=== PATIENT | male | born 1955 | race Caucasian/White ===

== ENCOUNTER 2021-12-14 10:31 | Observation (INO) ==
--- NOTE | 2021-11-29 12:40 | PAT Medication Instructions ---
Medication Instructions Date of Service November 29, 2021 Home Medications acetaminophen 500 mg tablet 500 mg PO Q6H PRN albuterol sulfate 90 mcg/actuation aerosol inhaler 2 puff INHALATION 6XD PRN aspirin 81 mg tablet,delayed release 81 mg PO QAM atorvastatin 10 mg tablet 10 mg PO QAM bimatoprost 0.01 % eye drops (Lumigan) 1 drp OPHTHALMIC (EYE) PM brimonidine 0.2 %-timolol 0.5 % eye drops (Combigan) 1 drp OPHTHALMIC (EYE) BID celecoxib 200 mg capsule (Celebrex) 200 mg PO QAM dorzolamide (PF) 2 % (PF) eye drops 1 drp OPHTHALMIC (EYE) BID fluticasone furoate 100 mcg-vilanterol 25 mcg/dose inhalation powder (Breo Ellipta) 1 inh INHALATION QAM metoprolol succinate 100 mg tablet,extended release 24 hr (Toprol XL) 100 mg PO QAM omeprazole 40 mg capsule,delayed release 40 mg PO QAM oxybutynin chloride 15 mg tablet,extended release 24 hr 15 mg PO QAM ASK your surgeon for instructions celecoxib 200 mg capsule (Celebrex) 200 mg PO QAM ASK your prescriber and surgeon aspirin 81 mg tablet,delayed release 81 mg PO QAM DO NOT take the morning of surgery oxybutynin chloride 15 mg tablet,extended release 24 hr 15 mg PO QAM Take morning of surgery With a small sip of water, OTHERWISE NOTHING TO EAT OR DRINK AFTER MIDNIGHT: acetaminophen 500 mg tablet 500 mg PO Q6H PRN (okay to take up to 4 hours prior to surgery if needed) albuterol sulfate 90 mcg/actuation aerosol inhaler 2 puff INHALATION 6XD PRN (use if needed; please bring rescue inhaler with you to hospital day of surgery if possible) atorvastatin 10 mg tablet 10 mg PO QAM brimonidine 0.2 %-timolol 0.5 % eye drops (Combigan) 1 drp OPHTHALMIC (EYE) BID dorzolamide (PF) 2 % (PF) eye drops 1 drp OPHTHALMIC (EYE) BID fluticasone furoate 100 mcg-vilanterol 25 mcg/dose inhalation powder (Breo Ellipta) 1 inh INHALATION QAM metoprolol succinate 100 mg tablet,extended release 24 hr (Toprol XL) 100 mg PO QAM omeprazole 40 mg capsule,delayed release 40 mg PO QAM Take evening before surgery acetaminophen 500 mg tablet 500 mg PO Q6H PRN (if needed) albuterol sulfate 90 mcg/actuation aerosol inhaler 2 puff INHALATION 6XD PRN (if needed) bimatoprost 0.01 % eye drops (Lumigan) 1 drp OPHTHALMIC (EYE) PM brimonidine 0.2 %-timolol 0.5 % eye drops (Combigan) 1 drp OPHTHALMIC (EYE) BID dorzolamide (PF) 2 % (PF) eye drops 1 drp OPHTHALMIC (EYE) BID Other Notes If you have any questions please call us at [phone] or [phone] or [phone] or [phone]
--- NOTE | 2021-12-01 09:59 | Anesthesiology Consultation ---
Date of Service December 01, 2021 Assessment & Plan (1) Encounter for pre-operative examination: - will obtain: most recent cardiology note and loop recorder interrogation. most recent PCP office note. - PONV: Pt states has received scop patch in past, has glaucoma. To anesthesiologist discretion if benefit outweighs risk. - COVID screening: Per assessment on 12/01/2021: Travel screen negative, no known COVID-19 positive contacts or current COVID-19 related symptoms in past 2 weeks. Patient vaccinated. Surgeon arranging preop COVID testing, scheduled 12/12/2021. Awaiting results. Chart Review Chart Review: Pending: Refer to Additional Notes / Consult section and Patient seen in Pre Admission Testing History Surgery Operation Date: 12/14/21 11:15 Proposed Procedures p Left Reversed Total Shoulder Arthroplasty - Pablo Delgado MD Height/Weight Height: 5 ft 9 in Weight: 90.7 kg Allergies Allergy/AdvReac Type Severity Reaction Status Date / Time oxycodone [From OxyContin] AdvReac Unknown HIVES, Verified 11/29/21 08:31 NAUSEA Medications Home Medications Medication Instructions Recorded Confirmed Last Taken acetaminophen 500 mg tablet 500 mg PO Q6H PRN 11/29/21 11/29/21 Unknown albuterol sulfate 90 mcg/actuation 2 puff INHALATION 6XD PRN 11/29/21 11/29/21 Unknown aerosol inhaler aspirin 81 mg tablet,delayed 81 mg PO QAM 11/29/21 11/29/21 Unknown release atorvastatin 10 mg tablet 10 mg PO QAM 11/29/21 11/29/21 Unknown bimatoprost 0.01 % eye drops 1 drp OPHTHALMIC (EYE) PM 11/29/21 11/29/21 Unknown (Lumigan) brimonidine 0.2 %-timolol 0.5 % 1 drp OPHTHALMIC (EYE) BID 11/29/21 11/29/21 Unknown eye drops (Combigan) celecoxib 200 mg capsule (Celebrex) 200 mg PO QAM 11/29/21 11/29/21 Unknown dorzolamide (PF) 2 % (PF) eye drops 1 drp OPHTHALMIC (EYE) BID 11/29/21 11/29/21 Unknown fluticasone furoate 100 1 inh INHALATION QAM 11/29/21 11/29/21 Unknown mcg-vilanterol 25 mcg/dose inhalation powder (Breo Ellipta) metoprolol succinate 100 mg 100 mg PO QAM 11/29/21 11/29/21 Unknown tablet,extended release 24 hr (Toprol XL) omeprazole 40 mg capsule,delayed 40 mg PO QAM 11/29/21 11/29/21 Unknown release oxybutynin chloride 15 mg 15 mg PO QAM 11/29/21 11/29/21 Unknown tablet,extended release 24 hr Past Medical History Medical History (Updated 12/01/21 @ 11:15 by Grace Lieberman PA-C) Asthma last rescue inhaler use > 6 mos ago Atrial fibrillation Follows with Dr. Hook ([place]), states was recently taken off anticoagulation by medical csr given absence of significant arrhythmias on recent loop recorder interrogation Cancer Prostate DJD (degenerative joint disease) GERD (gastroesophageal reflux disease) controlled, stable per pt Glaucoma Hyperlipidemia Hypertension controlled, stable per pt Sleep apnea CPAP-compliant Patient denies h/o stroke, seizures, heart attack, heart failure, DM, blood clots or blood transfusions. Exercise / Class Metabolic Activity II 4-5 Yardwork/Stairs/Walk up hill (denies CP or SOB with 1 FOS) Past Family History Family History Grandmother (Paternal) Family history of diabetes mellitus Past Surgical History Surgical History History of appendectomy History of cardiac cath NO [facility]15 YRS AGO History of colonoscopy 2019 History of esophagogastroduodenoscopy (EGD) History of hand surgery LEFT FINGER History of knee surgery RIGHT ACL History of loop recorder IN PLACE History of prostatectomy AND RADIATION 2019 History of shoulder surgery LEFT X 2 History of total knee replacement LEFT Nausea and vomiting after administration of anesthetic agent Past Anesthesia History No Hx of Anesthesia Complications and No Family Hx of Anesthesia Complications History of PONV No Hx of Motion Sickness and History of PONV Social History Smoking Status: Never smoker Do You Dip or Chew Tobacco: No Hx Alcohol Use: No Hx Substance Use: No Review of Systems Patient denies chest pain, shortness of breath, dyspnea on exertion, fever, chills, cough, wheezing, or palpitations. Physical Exam Vital Signs Vitals BP 156/90 P 50 TEMP 97.6 SP02 98% on RA RESP 17 Physical Full cervical extension range of motion without pain Full TMJ range of motion TMD 3.5 finger breaths Mallampati Score 3 Dentition: intact, several caps front upper teeth; denies missing, chipped or loose teeth teeth, implants or bridges Lungs: normal respiratory effort. Clear throughout to auscultation, no adventitious breath sounds Cardiac: regular rate and rhythm, no murmurs noted Carotid arteries: negative bruit bilat Lab Results Anesthesia Preop Results Results Anesthesia Widget: WBC 4.02 K/uL (4.8-10.8) L 12/01/21 Hgb 14.4 g/dL (14.0-18.0) 12/01/21 Hct 42.1 % (42-52) 12/01/21 Plt 157 K/uL (130-400) 12/01/21 Na 141 mmol/L (136-145) 12/01/21 K 5.0 mmol/L (3.5-5.1) 12/01/21 Cl 106 mmol/L (98-107) 12/01/21 CO2 31 mmol/L (21-32) 12/01/21 BUN 23 mg/dl (6-23) 12/01/21 Creat 1.14 mg/dl (0.6-1.4) 12/01/21 Glucose Level 95 mg/dl (70-99(Fasting)) 12/01/21 PT 11.7 Seconds (9.0-12.0) 12/01/21 PTT 24.1 Seconds (21.0-31.0) 12/01/21 INR 1.1 (0.9-1.1) 12/01/21 HA1c 5.4 % (4.5-5.6) 12/01/21 Urine Color Yellow 12/01/21 Urine Appearance Clear (Clear) 12/01/21 Urine pH 6.0 (4.5-7.5) 12/01/21 Urine Specific Elizabeth 1.013 (1.000-1.030) 12/01/21 Urine Protein Negative (Negative) 12/01/21 Urine Glucose (UA) Negative (Negative) 12/01/21 Urine Ketones Negative (Negative) 12/01/21 Urine Blood Negative (Negative) 12/01/21 Urine Nitrite Negative (Negative) 12/01/21 Urine Bilirubin Negative (Negative) 12/01/21 Urine Urobilinogen Negative (Negative) 12/01/21 Urine Leukocyte Esterase Negative (Negative) 12/01/21 Blood Type AB Positive 12/01/21 Antibody Screen NEGATIVE 12/01/21 Testing Electrocardiogram Date: 11/28/21 Sinus rhythm, rate 56 bpm Chest X-Ray Date: 12/01/21 FINDINGS: Frontal and lateral radiographs of the chest demonstrate the cardiomediastinal silhouette to be within normal limits. A loop recorder is in place. The lungs are clear of alveolar opacities. There is no evidence for effusion bilaterally. There is no evidence for vascular congestion. There is no acute osseous pathology. IMPRESSION: 1. No acute cardiopulmonary disease. Echocardiogram Date: 10/28/20 EF 55-60% Normal wall motion Mild right and left atrial enlargement Mild right ventricular enlargement Mild tricuspid regurgitation Mild mitral regurgitation Mild pulmonic insufficiency Diastolic function is indeterminate
--- NOTE | 2021-12-13 17:03 | History & Physical Report ---
Date of Service December 13, 2021 Assessment & Plan (1) Rotator cuff arthropathy of left shoulder: Plan: Treatment options discussed with the patient. He has failed conservative measures. He would like to proceed with surgical intervention. Risks, benefits and alternatives to surgery including but not limited to infection, DVT, pain, stiffness, need for revision surgery, damage to blood vessels, damage to nerves, PE, , were discussed with the patient and they wish to proceed. Plan on left reverse total shoulder arthroplasty scheduled for [facility] on 12/14/[address] Delgado. All questions answered. Patient will follow up postoperatively. History of Present Illness Chief Complaint: Left shoulder pain Primary Care Provider: Pa Dooley MD Patient is 66-year-old male with past medical history significant for hypertension, NIRAV, asthma, GERD, A. fib, CAD, high cholesterol who presents with chronic left shoulder pain. Patient has a massive retracted chronic rotator cuff tear. History of prior rotator cuff repair. Pain is interfering with his daily activities. He has failed conservative measures. He would like to proceed with surgical intervention. Patient denies headaches, sweats, fevers, chills, double vision, blurred vision, cough, sore throat, dysphagia, chest pa in, sob, wheezing, n/v/d/c, numbness, tingling, fatigue, urinary symptoms, mood disorders. ROS positive for left shoulder pain and stiffness. Allergies Allergy/AdvReac Type Severity Reaction Status Date / Time oxycodone [From OxyContin] AdvReac Mild HIVES, Verified 12/13/21 08:56 NAUSEA Home Medications Medication Instructions Recorded Confirmed Type acetaminophen 500 mg tablet 500 mg PO Q6H PRN 11/29/21 11/29/21 History albuterol sulfate 90 mcg/actuation 2 puff INHALATION 6XD PRN 11/29/21 11/29/21 History aerosol inhaler aspirin 81 mg tablet,delayed 81 mg PO QAM 11/29/21 11/29/21 History release atorvastatin 10 mg tablet 10 mg PO QAM 11/29/21 11/29/21 History bimatoprost 0.01 % eye drops 1 drp OPHTHALMIC (EYE) PM 11/29/21 11/29/21 History (Lexis) brimonidine 0.2 %-timolol 0.5 % 1 drp OPHTHALMIC (EYE) BID 11/29/21 11/29/21 History eye drops (Combigan) celecoxib 200 mg capsule (Celebrex) 200 mg PO QAM 11/29/21 11/29/21 History dorzolamide (PF) 2 % (PF) eye drops 1 drp OPHTHALMIC (EYE) BID 11/29/21 11/29/21 History fluticasone furoate 100 1 inh INHALATION QAM 11/29/21 11/29/21 History mcg-vilanterol 25 mcg/dose inhalation powder (Breo Ellipta) metoprolol succinate 100 mg 100 mg PO QAM 11/29/21 11/29/21 History tablet,extended release 24 hr (Toprol XL) omeprazole 40 mg capsule,delayed 40 mg PO QAM 11/29/21 11/29/21 History release oxybutynin chloride 15 mg 15 mg PO QAM 11/29/21 11/29/21 History tablet,extended release 24 hr Past Med/Surg History Medical History (Updated 12/13/21 @ 17:09 by Iam Stanford PA-C) Asthma last rescue inhaler use > 6 mos ago Atrial fibrillation Follows with Dr. Hook ([place]), states was recently taken off anticoagulation by bobbin marker given absence of significant arrhythmias on recent loop recorder interrogation CAD (coronary artery disease) minimal hx 2 cath (2005 and 2009, not definitive dates) per cardio records Cancer Prostate DJD (degenerative joint disease) GERD (gastroesophageal reflux disease) controlled, stable per pt Glaucoma Hyperlipidemia Hypertension controlled, stable per pt Prediabetes per PCP records Sleep apnea CPAP-compliant Surgical History History of appendectomy History of cardiac cath NO [facility]15 YRS AGO History of colonoscopy 2019 History of esophagogastroduodenoscopy (EGD) History of hand surgery LEFT FINGER History of knee surgery RIGHT ACL History of loop recorder IN PLACE History of prostatectomy AND RADIATION 2019 History of shoulder surgery LEFT X 2 History of total knee replacement LEFT Nausea and vomiting after administration of anesthetic agent Family History Grandmother (Paternal) Family history of diabetes mellitus Social History (Updated 11/29/21 @ 08:57 by Karyn Rae, KODY) Smoking Status: Never smoker Second Hand Exposure: No; Do You Dip or Chew Tobacco: No; Hx Alcohol Use: No Hx Substance Use: No Preferred Language: [place] Communication Ability: Effective Manager Talent Acquisition Required: No Beliefs That Will Affect Care: None Current Living Situation: Spouse current occupational status: retired Other Information That Helps Us Care for You: No Feels Safe at Home: Yes Safety Concerns: Feels Safe At This Time Assistive Devices: Glasses and Hearing Aid - Bilateral Review of Systems All systems reviewed & are unremarkable except as noted in HPI & below Physical Exam Constitutional: well developed and well nourished; no acute distress Eyes: PERRL, conjunctivae normal, anicteric sclerae ENMT: external ear and nose normal, oropharynx normal Neck: trachea midline, no thyromegaly Respiratory: normal respiratory effort, lungs clear to auscultation Cardiovascular: RRR, no murmur, no edema Musculoskeletal: Left shoulder: Crepitus noted with range of motion. Positive Moon, positive drop arm test and Hornblower sign. Active painful range of motion. Forward flexion to 120 degrees, abduction 130 degrees. Pain and weakness noted with strength testing. Skin: no rashes, warm and dry Neurologic: patellar DTR's 2+ bilat, sensation intact Psychiatric: A+Ox3, euthymic affect Results & Data ([facility]) Diagnostic Findings Left shoulder: Proximal migration humeral head. Significant arthritic change glenohumeral joint. Postoperative changes consistent with prior arthroscopy. MRI demonstrates a massive retracted irreparable rotator cuff tear
[~2021-12-14 10:31] MED LIST: ACETAMINOPHEN 500 MG TAB PO SCH; BUPIVACAINE 0.5 % 5 MG/1 ML PF 10ML VIAL ONE; CeleBREX 200 MG CAP PO SCH; FAMOTIDINE 20 MG TAB PO SCH; GABAPENTIN 300 MG CAP PO SCH; LR 15ML/HR IV SCH; METOCLOPRAMIDE HCL 10 MG TABLET PO SCH; TRANEXAMIC ACID 1,000 MG **IV Intra-op IV SCH; TRANEXAMIC ACID 1,000 MG **IV Pre-op IV SCH; dexAMETHasone 4 MG TAB PO SCH
[2021-12-14] MEDS ORDERED: LIDOCAINE 2% 2 ML VIAL/AMP(20MG/ML) INFIL ONE (11:20)
[2021-12-14] MEDS ORDERED: PROPOFOL IV EMULSION 10 MG/ML 20 ML VIAL IV ONE (11:20)
[2021-12-14] MEDS ORDERED: MIDAZOLAM HCL 1 MG/ML 2ML VIAL ONE (11:21)
[2021-12-14] MEDS ORDERED: fentaNYL citrate 100 MCG/2 ML VIAL ONE (11:21)
[2021-12-14] MEDS ORDERED: fentaNYL citrate 100 MCG/2 ML VIAL IV PRN (12:03)
[2021-12-14] MEDS ORDERED: ePHEDrine sulfate 50 MG/ML AMP IV PRN (12:03)
[2021-12-14] MEDS ORDERED: NALOXONE HCL 0.4 MG/1 ML VIAL/CARP IV PRN ×2 (12:03→18:19)
[2021-12-14] MEDS ORDERED: ONDANSETRON INJ 2 MG/ML 2 ML VIAL IV PRN ×2 (12:03→18:19)
[2021-12-14] MEDS ORDERED: LABETALOL HCL IV 5 MG/ML 20ML IV PRN (12:03)
[2021-12-14] MEDS ORDERED: HYDROmorphone INJ 1 MG/ML SYRINGE IV PRN (12:03)
[2021-12-14] MEDS ORDERED: DEXAMETHASONE SOD INJ 4 MG/ML VIAL IV PRN (12:03)
[2021-12-14] MEDS ORDERED: PROMETHAZINE HCL 12.5 MG in SODIUM CHLORIDE 0.9% 50 ML IV PRN (12:03)
[2021-12-14] MEDS ORDERED: ATROPINE SULFATE 0.1 MG/ML 10ML SYR IV PRN (12:03)
--- NOTE | 2021-12-14 12:34 | History & Physical Bridge Note ---
Date of Service December 14, 2021 History & Physical Bridge Note I have examined the patient, reviewed the History & Physical and in the interval since the performance of the History & Physical I have noted the following changes of clinical significance: no changes noted
[2021-12-14] MEDS: ceFAZolin 2000MG 2,000 MG/15 ML SYR IV SCH ×3 (13:25→21:45)
--- NOTE | 2021-12-14 16:55 | Operative Report ---
Post Operative Report Pre & Post Diagnosis Operation Date: 12/14/21 12:15 Pre-Op Diagnosis: Left Shoulder Rotator Cuff arthropathy, failed rotator cuff repair due to trauma, status post biceps tenodesis and rotator cuff repair and excision of os acromiale. Post-Op Diagnosis: Left Shoulder Rotator Cuff arthropathy, failed rotator cuff repair due to trauma, status post biceps tenodesis and rotator cuff repair and excision of os acromiale. I identified the patient and participated in the time-out.: Yes Procedure Operation Date: 12/14/21 12:15 Actual Procedures p Left Reversed Total Shoulder Arthroplasty, removal suture anchor suture material, partial rotator cuff repair. Pablo Delgado MD Surgeon Pablo Delgado MD Bus Aide Luis CARRILLO Estimated Blood Loss 80 Findings Consistent with Post-Op Diagnosis Specimens Humeral head Drains 2 Hemovac Anesthesia Type General Regional Complications none Disposition Disposition: Recovery Room Indications 66-year-old male with pain weakness dysfunction left shoulder. History of previous rotator cuff repair excision os acromiale biceps tenodesis. Patient did well over the years has had recent injury with massive cuff tear and dysfunction with very limited overhead use. Patient has large retracted recurrent rotator cuff tear with failed rotator cuff repair and onset of rotator cuff arthropathy with glenohumeral DJD proximal migration humerus all poor prognosis for any revision repair. Description of Procedure The patient was taken to the operating room and anesthetized under regional block and general anesthetic. The patient was positioned on the operating table in a 30 beach chair position with a towel roll under the medial border of the left scapula. The arm was draped free to be able to manipulate the shoulder as needed. The left upper extremity was prepped and draped in usual sterile fashion. Exam demonstrated preanesthesia Heley had 90 degrees of forward elevation abduction and can raise arm overhead. Patient good passive range of motion with 160 degrees forward elevation 90 degrees abduction and 60 degrees external rotation. There were old scars from arthroscopic and subpectoral biceps tenodesis. An anterior deltopectoral approach was performed. A longitudinal incision was made in the deltopectoral interval. The skin was incised sharply. Subcutaneous flaps were elevated off the fascia. The cephalic vein was dissected out and retracted lateral with the deltoid. The clavipectoral fascia was divided at the lateral margin of the conjoined tendon and extended up to the CA ligament. The following findings were noted: There was dense scarred bursa tissue surrounding the subscapularis surrounding the rotator cuff and subacromial space extending over the posterior cuff and over the teres minor area. Biceps tendon was absent but there was collection of synovitis in the biceps tendon sheath extending from the shoulder joint down into the biceps tendon sheath into the subpectoral region. The upper centimeter of the pectoralis was released for inferior exposure. Extensive bursectomy was performed excisingthe scarred bursa tissue over the subscapularis tendon which was still intact. About 14 mm of supraspinatus was still intact adjacent to the rotator interval and then there was a tear extending back to the teres minor with the posterior rotator cuff being retracted. Scarred bursa in the subacromial space and back over the posterior rotator cuff was all resected. A self retaining retractor was placed.The subsc apular muscle fibers were split longitudinally at the level of the circumflex vessels. The circumflex vessels were identified and tied off with silk ties and divided laterally. A Kitner elevator was used to free up the inferior fibers of the subscapularis off of the capsule. The axillary nerve was protected with a blunt Aki retractor between the nerve and the capsule. The subscapularis tend on was then taken down off of the lesser tuberosity subperiosteally, a Vicryl traction suture was placed and a subperiosteal dissection was performed along the neck of the humerus as the arm was gradually externally rotated exposing the humeral head. The humeral head findings demonstrated moderate inferior posterior osteophytes with grade 3 wear on the humeral head. Retractors were readjusted and the inferior osteophytes were all resected using an artist chisel and a small rongeur. A Mensah elevator was used to assist in releasing the capsule of the neck of the humerus. The capsule was divided with Jackson scissors down to the glenoid released off the anterior glenoid and the rotator interval was released to meet the capsular release and a 360 release of the subscapularis was accomplished. A Fukuda retractor was placed into the joint retracting the humeral head posterior. Glenoid findings demonstrated arthritic changes but still had articular cartilage on the glenoid and the labrum was still intact.. The labrum was resected. an anterior-inferior and posterior inferior capsular release were performed with electrocautery and a Mensah elevator on bone with the axillary nerve protected inferiorly by the retractor. Attention was then taken to the humeral preparation. The section supraspinatus tendon was released with a scalpel and a Vicryl traction suture was placed. The cutting guide was placed into the humeral head. It was positioned at 20 of retroversion. Oscillating saw was used to resect the humeral head giving the cut above the level of the posterior rotator cuff insertion site. The humerus was then prepared for the stem. I removed all suture anchors and suture material with a rongeur. This allowed placement of the appropriate broaches. I used the ascend flex stem from [employer]. The sizing broaches were used followed by trial broaches up to a size 3 which had the appropriate fit and fill. Patient's bone was very hard so the stem was undersized distally because the proximal bone was so hard we could not go up a size higher than the 3. The appropriate sized cut protector was placed. The humerus was then retracted posterior to the glenoid. The glenoid was sized for a 36 glenoid sphere and he had a narrow glenoid and a 25 baseplate was appropriate. The guide for the baseplate was positioned in a 10 inferior tilt and the central drill hole was made. The reamer for the 25 baseplate was used. The central drill was widened for the peg. The [employer] aequalis hydroxyapatite-coated 25 mm baseplate was impacted into position. The base plate was transfixed with superior and inferior locking screws and anterior and posterior compression screws with stable fixation. The fan reamer was used for the 36 millimeter glenoid sphere. After irrigation the 36 mm standard glenoid sphere was impacted onto the baseplate and the security screw was tightened. Attention was taken back to the humerus. The cut protector was removed and the plus or high offset humeral tray trial was assembled to the trial stem rotated appropriately to get bony coverage and then screwed in position. A trial reduction was performed. A +9 reversed trial insert demonstrated good stability and no shuck. The trials were removed. 3 drill holes are made into the harder bone in the bicipital groove area and 3 #5 FiberWire sutures were placed transosseously. The canal was irrigate with pulse saline solution The final component was assembled. The final component was [employer] 3B long ascend flex PTC stem assembled to the high offset +0 tray with a 36+9 mm reversed polyethylene insert. The defect from removing the bone anchors was bone grafted with bone graft from the humeral head into the greater tuberosity. The stem implant then impacted into the humerus with a tight press-fit. It was reduced to the glenoid sphere. Stability was verified. The previously released portion of the supraspinatus was transferred back posteriorly and I was able to get some thin infraspinatus tissue and suture this to the released supraspinatus tissue with side to side #2 FiberWire [id number] sutures. Then the supraspinatus and infraspinatus tendons were sutured with transosseous #2 FiberWire sutures into the posterior greater tuberosity infraspinatus attachment site to help gain more external rotation strength. Subscapularis was then repaired with the #5 FiberWire sutures using Jose-Deandre suture technique. Lateral row soft tissue repair was performed with #2 FiberWire [id number] sutures. The pectoralis was repaired with #2 FiberWire sxjqvb-mi-fnzoy sutures. The arm was taken through a range of motion which demonstrated 150 degrees forward elevation 90 degrees abduction and 60 degrees external rotation without tension on repair there was no shuck and the implant was stable. The implant was stable through the range of motion tested. The wound was copiously irrigated. 2 Hemovac drains were placed. The deltopectoral interval was closed with [id number] #1 Vicryl sutures. The subcutaneous tissues were closed with 2-0 Vicryl sutures. The skin was closed with roxy. Sterile dressings were applied and a shoulder immobilizer. Luis CARRILLO my physician res habilitation assistant acted as assistant professor nurse education throughout the procedure .He performed functions including patient positioning, arm positioning, prepping and draping, soft tissue retraction, instrument management, suture management and performed the subcutaneous and skin closure and will participate in the postoperative care of the patient. I attest to the content of the Intraoperative Record and any orders documented therein. Any exceptions are noted below.
[2021-12-14] MEDS ORDERED: NEOSTIGMINE METHYLSULFATE 1 MG/ML 10ML VIAL ONE (17:05)
[2021-12-14] MEDS ORDERED: GLYCOPYRROLATE 0.2 MG/ML VIAL ONE (17:05)
[2021-12-14] MEDS ORDERED: ONDANSETRON INJ 2 MG/ML 2 ML VIAL ONE (17:05)
[2021-12-14] MEDS ORDERED: ePHEDrine sulfate 50 MG/ML AMP ONE (17:05)
--- NOTE | 2021-12-14 17:07 | XRay Report ---
XR shoulder LT 1V CLINICAL HISTORY: NEEDLE COUNT. COMPARISON STUDY: No previous studies for comparison. TECHNIQUE: 1 view AP left shoulder. FINDINGS: The patient is status post total shoulder replacement with both humeral head and glenoid co mponents. The prosthetic components are in anatomic alignment with no acute osseous pathology. Skin s taples are seen within the soft tissues. No needles are identified on this image. IMPRESSION: 1. Status post total shoulder replacement with no evidence for a needle in the soft tissues. ACT 112: Negative or not required by law. Electronically signed by: Priyank Hardin M.D. 12/14/2021 5:05 PM
--- NOTE | 2021-12-14 17:40 | XRay Report ---
XR shoulder LT min 2V routine CLINICAL HISTORY: Post shoulder surgery. Status post total shoulder replacement COMPARISON STUDY: No previous studies for comparison. TECHNIQUE: 2 left shoulder views FINDINGS: The patient is status post total shoulder replacement with humeral head and glenoid compone nts. The prosthetic components are in anatomic alignment with no acute abnormality identified. Skin s taples are present from the recent procedure. IMPRESSION: 1. Status post total shoulder replacement. ACT 112: Negative or not required by law. Electronically signed by: Priyank Hardin M.D. 12/14/2021 5:39 PM
--- NOTE | 2021-12-14 18:17 | Anesthesiology Progress Note ---
Date of Service December 14, 2021 Anesthesia Post Procedure Vital Signs Vital Signs: Temp Pulse Pulse Resp BP Pulse Ox 12/14/21 18:00 61 20 140/93 95 12/14/21 17:45 60 19 138/90 94 12/14/21 17:35 36.2 C L 60 17 137/92 93 12/14/21 17:25 62 14 143/96 H 94 12/14/21 17:15 61 18 147/94 H 94 12/14/21 17:05 61 14 131/89 94 12/14/21 16:57 36.0 C L 71 21 130/88 94 12/14/21 11:09 36.6 C 55 L 20 170/97 H 96 Pain Intensity Left Shoulder: Pain Intensity: 3 Transfer of Care Handoff Completed per policy Notes Mental Status: alert / awake / arousable and participated in evaluation Patient Amnestic to Procedure: Yes Nausea / Vomiting: adequately controlled Pain: adequately controlled Airway Patency, RR, SpO2: stable & adequate BP & HR: stable & adequate Hydration State: stable & adequate Anesthetic Complications: no major complications apparent and Pt Satisfied with anesthetic care
[2021-12-14] MEDS ORDERED: HYDROmorphone INJ 0.5 MG/0.5 ML SYR IV PRN (18:19)
[2021-12-14] MEDS ORDERED: oxyCODONE HCL IR 5 MG TAB (IMMEDIATE RELEASE) PO PRN (18:19)
[2021-12-14] MEDS ORDERED: ALBUTEROL HFA 8 GM INHALER INH PRN (18:19)
[2021-12-14] MEDS ORDERED: METOCLOPRAMIDE HCL INJ 5 MG/ML 2 ML VIAL IV PRN (18:19)
[2021-12-14] MEDS ORDERED: bisacodyL 10 MG SUPP PR PRN (18:19)
[2021-12-14] MEDS ORDERED: MAGNESIUM HYDROXIDE SUSP 30 ML UDC PO PRN (18:19)
[2021-12-14] MEDS: SODIUM CHLORIDE 0.9% 1000ML 1,000 ML IV SCH (18:41)
--- NOTE | 2021-12-14 18:53 | Hospitalist Consultation ---
Date of Consultation December 14, 2021 Assessment & Plan (1) Rotator cuff arthropathy of left shoulder: -S/P left reverse total shoulder arthroplasty. Without complication. -Defer pain/abx/IVF/bowel regimen/anticoagulation to primary team. -BMP and CBC in AM. (2) Atrial fibrillation: -Follows with Dr. Hook ([place]), states he was recently taken off anticoagulation by director of guidance in [employer] given absence of significant arrhythmias on recent loop recorder interrogation. -Continue metoprolol 100 mg daily. (3) CAD (coronary artery disease): -Continue statin, b-nai, ASA daily. (4) Hypertension: -Continue metoprolol. (5) Hyperlipidemia: -Continue atorvastatin 10 mg daily. (6) Asthma: -Continue Breo inhaler daily. -Albuterol inhaler PRN, has not required in 6+ months. (7) GERD (gastroesophageal reflux disease): -Takes omeprazole 40 mg daily, switch to Protonix per hospital formulary. (8) Glaucoma: -Continue eye drops. (9) Overactive bladder: -Continue oxybutynin. (10) Sleep apnea: -CPAP at night, has home machine. Supervising Physician Co-Signing Physician Notes I personally saw and examined the patient. I verified all coronado points and agree with Ama Pinon PA-C with the following exceptions and/or additions: 66 yo male POD#0 left total shoulder arthroplasty. Not yet regained finger strength after block from surgery. Otherwise doing well. Home medications reviewed and no changes recommended. Thank you for the consult we will review patient tomorrow with post op labs. History of Present Illness Reason for Consultation: post op medical management Attending Physician: Pablo Delgado MD History of Present Illness Patient is 66-year-old male with past medical history significant for A. fib, CAD, HTN, HLD, NIRAV, asthma, and GERD who underwent left reverse total shoulder arthroplasty today after failing conservative management of his rotator cuff tear. Tonight, he is POD#0, feels well, is just slightly nauseous. He is on 2L NC with O2 sats in 90s, slightly hypertensive with SBP 150s. Without any pain at the procedural site, no fever/chills, chest pain, palpitations, SOB, cough, vomiting, abdominal pain, numbness/tingling, focal weakness. Current medications include Breo inhaler with prn albuterol, ASA 81mg daily, atorvastatin 10 mg daily, metoprolol 100 mg daily, omeprazole 40 mg daily, and oxybutynin 15 mg daily, as well as eye drops for IOP. Allergies Allergy/AdvReac Type Severity Reaction Status Date / Time oxycodone [From OxyContin] AdvReac Mild HIVES, Verified 12/14/21 10:58 NAUSEA Home Medications Medication Instructions Recorded Confirmed Type acetaminophen 500 mg tablet 500 mg PO Q6H PRN 11/29/21 12/14/21 History albuterol sulfate 90 mcg/actuation 2 puff INHALATION 6XD PRN 11/29/21 12/14/21 History aerosol inhaler aspirin 81 mg tablet,delayed 81 mg PO QAM 11/29/21 12/14/21 History release atorvastatin 10 mg tablet (Lipitor) 10 mg PO QAM 11/29/21 12/14/21 History bimatoprost 0.01 % eye drops 1 drp OPHTHALMIC (EYE) PM 11/29/21 12/14/21 History (Lumigan) brimonidine 0.2 %-timolol 0.5 % 1 drp OPHTHALMIC (EYE) BID 11/29/21 12/14/21 History eye drops (Combigan) celecoxib 200 mg capsule (Celebrex) 200 mg PO QAM 11/29/21 12/14/21 History dorzolamide (PF) 2 % (PF) eye drops 1 drp OPHTHALMIC (EYE) BID 11/29/21 12/14/21 History fluticasone furoate 100 1 inh INHALATION QAM 11/29/21 12/14/21 History mcg-vilanterol 25 mcg/dose inhalation powder (Breo Ellipta) metoprolol succinate 100 mg 100 mg PO QAM 11/29/21 12/14/21 History tablet,extended release 24 hr (Toprol XL) omeprazole 40 mg capsule,delayed 40 mg PO QAM 11/29/21 12/14/21 History release oxybutynin chloride 15 mg 15 mg PO QAM 11/29/21 12/14/21 History tablet,extended release 24 hr cefadroxil 500 mg capsule 500 mg PO BID #14 cap 12/15/21 Rx hydrocodone 5 mg-acetaminophen 325 1 - 2 tab PO Q6H PRN #30 tab MDD 8 12/15/21 Rx mg tablet tabs polyethylene glycol 3350 17 gram 17 g PO DAILY PRN #5 ea 12/15/21 Rx oral powder packet (Miralax) Patient History Medical History (Updated 12/14/21 @ 19:07 by Ama Pinon PA-C) Asthma last rescue inhaler use > 6 mos ago Atrial fibrillation Follows with Dr. Hook ([place]), states was recently taken off anticoagulation by director of guidance in [employer] given absence of significant arrhythmias on recent loop recorder interrogation CAD (coronary artery disease) minimal hx 2 cath (2005 and 2009, not definitive dates) per cardio records Cancer Prostate DJD (degenerative joint disease) GERD (gastroesophageal reflux disease) controlled, stable per pt Glaucoma has high eye pressure- eye drops are keeping the pressure down Hyperlipidemia Hypertension controlled, stable per pt Prediabetes per PCP records Sleep apnea CPAP-compliant Surgical History History of appendectomy History of cardiac cath NO STENTS-[facility]-15 YRS AGO History of colonoscopy 2019 History of esophagogastroduodenoscopy (EGD) History of hand surgery LEFT FINGER History of knee surgery RIGHT ACL History of loop recorder IN PLACE History of prostatectomy AND RADIATION 2019 History of shoulder surgery LEFT X 2 History of total knee replacement LEFT Nausea and vomiting after administration of anesthetic agent Family History Grandmother (Paternal) Family history of diabetes mellitus Social History (Updated 11/29/21 @ 08:57 by Karyn Rae, KODY) Smoking Status: Never smoker Second Hand Exposure: No; Do You Dip or Chew Tobacco: No; Hx Alcohol Use: No Hx Substance Use: No Preferred Language: Faroese Communication Ability: Effective Joy Loader Required: No Beliefs That Will Affect Care: None Current Living Situation: Spouse current occupational status: retired Other Information That Helps Us Care for You: No Feels Safe at Home: Yes Safety Concerns: Feels Safe At This Time Assistive Devices: Glasses and Hearing Aid - Bilateral Review of Systems Review of Systems: Constitutional: No fever/chills, weakness, fatigue, myalgias, anorexia, night sweats Eyes: No diplopia, no worsening or blurred vision ENT: normal hearing, no trouble swallowing Respiratory: No cough, sputum, dyspnea at rest or on exertion Cardiovascular: No chest pain, tightness or palpitations Abdomen: No pain, nausea, vomiting, diarrhea or constipation : Denies dysuria, hematuria, increased urgency/frequency, urinary retention Musculoskeletal: No joint pain, calf pain, swelling Neurologic: No weakness, numbness/tingling, or balance problems Psychiatric: No anxiety or depression Skin: No rash or itch Physical Exam Physical Exam: General: awake, alert, no apparent distress, on 2L NC Head: Normocephalic, atraumatic ENT: PERRL, EOMI, no pharyngeal exudate, mucous membranes moist Chest: Clear to auscultation, no adventitious breath sounds Cardiac: Regular rate and rhythm, no murmur, no JVD, normal peripheral pulses, good capillary refill Abdominal: NABS x 4 quadrants, soft, nontender to palpation, no rebound, guarding or tenderness Extremities: Normal inspection, no peripheral edema or erythema, calfs nontender to palpation Psych: Normal mood and affect Neuro: AAO x 3, strength intact bilaterally and rated 5/5, no motor deficits, speech is clear, no peripheral sensory deficits Skin: no rash or erythema Results & Data Results & Data ([facility]) Vital Signs (Past 12 Hours) Vital Signs Temp Pulse Pulse Resp BP Pulse Ox 12/14/21 18:15 36.3 C L 86 16 152/92 H 96 12/14/21 18:00 61 20 140/93 95 12/14/21 17:45 60 19 138/90 94 12/14/21 17:35 36.2 C L 60 17 137/92 93 12/14/21 17:25 62 14 143/96 H 94 12/14/21 17:15 61 18 147/94 H 94 12/14/21 17:05 61 14 131/89 94 12/14/21 16:57 36.0 C L 71 21 130/88 94 12/14/21 11:09 36.6 C 55 L 20 170/97 H 96 Diagnostic Findings Shoulder X-Ray 12/14/21 00:00 XR shoulder LT 1V CLINICAL HISTORY: NEEDLE COUNT. COMPARISON STUDY: No previous studies for comparison. TECHNIQUE: 1 view AP left shoulder. FINDINGS: The patient is status post total shoulder replacement with both humeral head and glenoid components. The prosthetic components are in anatomic alignment with no acute osseous pathology. Skin roxy are seen within the soft tissues. No needles are identified on this image. IMPRESSION: 1. Status post total shoulder replacement with no evidence for a needle in the soft tissues. ACT 112: Negative or not required by law. Electronically signed by: Priyank Hardin M.D. 12/14/2021 5:05 PM Shoulder X-Ray 12/14/21 17:01 XR shoulder LT min 2V routine CLINICAL HISTORY: Post shoulder surgery. Status post total shoulder replacement COMPARISON STUDY: No previous studies for comparison. TECHNIQUE: 2 left shoulder views FINDINGS: The patient is status post total shoulder replacement with humeral head and glenoid components. The prosthetic components are in anatomic alignment with no acute abnormality identified. Skin roxy are present from the recent procedure. IMPRESSION: 1. Status post total shoulder replacement. ACT 112: Negative or not required by law. Electronically signed by: Priyank Hardin M.D. 12/14/2021 5:39 PM PG Care Time/CCT Total # of Minutes Spent Total Time Spent with Patient: Total time spent is greater than 50% in coordination of care (as documented) at patient's floor/unit and/or counseling patient: Coding Level of Care Code 96056 Inpt Consult Level 3 Diagnoses Rotator cuff arthropathy of left shoulder M12.812 Atrial fibrillation I48.91 CAD (coronary artery disease) I25.10 Hypertension I10 Hyperlipidemia E78.5 Asthma J45.909 Glaucoma H40.9 GERD (gastroesophageal reflux disease) K21.9 Overactive bladder N32.81 Sleep apnea G47.30
[2021-12-14] MEDS: TIMOLOL MALEATE 0.5% OP SOLN 5 ML BTL OPB SCH ×2 (20:28→20:37)
[2021-12-14] MEDS: DORZOLAMIDE HCL 2% OPH SOLN 10 ML BTL OPB SCH ×2 (20:29→20:36)
[2021-12-14] MEDS: BRIMONIDINE TARTRATE 0.2% 5ML OPB SCH ×2 (20:29→20:36)
[2021-12-14] MEDS: DOCUSATE SODIUM 100 MG CAP PO SCH (20:30)
[2021-12-14] MEDS ORDERED: BRIMONIDINE TARTRATE 0.2% 5ML OPB SCH (21:00)
[2021-12-14] MEDS ORDERED: BIMATOPROST 0.01% OP SOLN 2.5 ML BTL OPB SCH (21:00)
[2021-12-14] MEDS ORDERED: SENNA 8.6 MG TAB PO SCH (21:00)
[2021-12-14] MEDS ORDERED: TIMOLOL MALEATE 0.5% OP SOLN 5 ML BTL OPB SCH (21:00)
[2021-12-14] MEDS: ACETAMINOPHEN 500 MG TAB PO SCH (21:45)
[2021-12-15] MEDS: SODIUM CHLORIDE 0.9% 1000ML 1,000 ML IV SCH (04:43)
[2021-12-15] MEDS: ceFAZolin 2000MG 2,000 MG/15 ML SYR IV SCH (05:54)
[2021-12-15] MEDS: ACETAMINOPHEN 500 MG TAB PO SCH (05:54)
[2021-12-15 06:39] LABS: Hematocrit (blood only) 39.7 % (42-52); Hemoglobin 13.8 g/dL (14.0-18.0); Immature Granulocytes # (auto) 0.02 K/uL (0.00-0.02); Immature Granulocytes % (auto) 0.2 %; Lymphocytes # (auto) 0.94 K/uL (1.2-3.4); Lymphocytes % (auto) 7.9 %; Mean Corpuscular Hemoglobin 30.3 pg (25-34); Mean Corpuscular Hgb Conc 34.8 g/dL (32-36); Mean Corpuscular Volume 87.1 fL (80-100); Mean Platelet Volume 9.2 fL (7.4-10.4); Monocytes # (auto) 0.75 K/uL (0.11-0.59); Monocytes % (auto) 6.3 %; Neutrophils # (auto) 10.26 K/uL (1.4-6.5); Neutrophils % (auto) 85.6 %; Platelet Count 163 K/uL (130-400); RDW Coefficient of Variation 13.6 % (11.5-14.5); RDW Standard Deviation 42.9 fL (36.4-46.3); Red Blood Count 4.56 M/uL (4.7-6.1); White Blood Count 11.97 K/uL (4.8-10.8)
[2021-12-15 07:12] LABS: BUN Creatinine Ratio 26.7 (10-20); Calcium 8.6 mg/dl (8.5-10.1); Creatinine Clr Calc Pharmacy 76.5 ml/min; Est GFR (African American) 85.3 ml/min; Est GFR (Non-African American) 73.6 ml/min; Potassium 4.2 mmol/L (3.5-5.1)
[2021-12-15] MEDS: DOCUSATE SODIUM 100 MG CAP PO SCH (08:22)
[2021-12-15] MEDS: DORZOLAMIDE HCL 2% OPH SOLN 10 ML BTL OPB SCH (08:23)
[2021-12-15] MEDS: TIMOLOL MALEATE 0.5% OP SOLN 5 ML BTL OPB SCH (08:23)
[2021-12-15] MEDS ORDERED: HYDROCODONE/ACETAMOPHEN 5/325MG TAB PO PRN (08:36)
[2021-12-15] MEDS: BRIMONIDINE TARTRATE 0.2% 5ML OPB SCH (08:36)
--- NOTE | 2021-12-15 08:42 | Orthopedic Progress Note ---
Date of Service December 15, 2021 Assessment & Plan (1) Rotator cuff arthropathy of left shoulder: Plan: Postop day 1 status post left reverse total shoulder arthroplasty PT/OT protocols. Nonweightbearing left upper extremity. DVT prophylaxis-aspirin daily, SCDs. Pain management-patient with history of oxycodone allergy. Switched to [place] at this time. DC planning-plan for discharge to home today. No official PT protocol to be started as outpatient until seen back in the office. Admission and Anticipated Discharge Date Admission Date: December 14, 2021 Subjective Postop day 1 Patient sitting up in bed awake and alert. No complaints this morning. Pain controlled. He states that he has some residual tingling in his fingers but he has noted much better range of motion of his fingers and wrist. Patient feels well. Physical Exam Physical Exam: Patient sitting up in bed awake and alert. Sling is in place. Dressings are clean, dry, and intact. He has good range of motion of his fingers and wrist with good strength. Residual decreased sensation with numbness and tingling. Capillary refills less than 2 seconds. Hemovac drainage is 75 mL. Results & Data ([facility]) Vital Signs (Past 12 Hours) Vital Signs Temp Pulse Pulse Resp BP Pulse Ox 12/15/21 07:43 36.6 C 73 18 145/85 H 94 12/15/21 02:43 36.5 C 68 16 129/84 94 12/14/21 22:13 168/115 H 12/14/21 21:15 36.4 C L 69 16 151/102 H 96 Laboratory Results Laboratory Results WBC 11.97 K/uL (4.8-10.8) H 12/15/21 06:14 RBC 4.56 M/uL (4.7-6.1) L 12/15/21 06:14 Hgb 13.8 g/dL (14.0-18.0) L 12/15/21 06:14 Hct 39.7 % (42-52) L 12/15/21 06:14 MCV 87.1 fL (80-100) 12/15/21 06:14 MCH 30.3 pg (25-34) 12/15/21 06:14 MCHC 34.8 g/dL (32-36) 12/15/21 06:14 RDW Std Deviation 42.9 fL (36.4-46.3) 12/15/21 06:14 RDW Coeff of Danny 13.6 % (11.5-14.5) 12/15/21 06:14 Plt Count 163 K/uL (130-400) 12/15/21 06:14 MPV 9.2 fL (7.4-10.4) 12/15/21 06:14 Immature Gran % (Auto) 0.2 % 12/15/21 06:14 Neut % (Auto) 85.6 % 12/15/21 06:14 Lymph % (Auto) 7.9 % 12/15/21 06:14 [place] % (Auto) 6.3 % 12/15/21 06:14 Eos % (Auto) 0.0 % 12/15/21 06:14 Baso % (Auto) 0.0 % 12/15/21 06:14 Neut # (Auto) 10.26 K/uL (1.4-6.5) H 12/15/21 06:14 Lymph # (Auto) 0.94 K/uL (1.2-3.4) L 12/15/21 06:14 [place] # (Auto) 0.75 K/uL (0.11-0.59) H 12/15/21 06:14 Eos # (Auto) 0.00 K/uL (0-0.5) 12/15/21 06:14 Baso # (Auto) 0.00 K/uL (0-0.2) 12/15/21 06:14 Immature Gran # (Auto) 0.02 K/uL (0.00-0.02) 12/15/21 06:14 Sodium 138 mmol/L (136-145) 12/15/21 06:14 Potassium 4.2 mmol/L (3.5-5.1) 12/15/21 06:14 Chloride 105 mmol/L (98-107) 12/15/21 06:14 Carbon Dioxide 26 mmol/L (21-32) 12/15/21 06:14 Anion Gap 7 (3-11) 12/15/21 06:14 BUN 28 mg/dl (6-23) H 12/15/21 06:14 Creatinine 1.05 mg/dl (0.6-1.4) 12/15/21 06:14 Est Cr Clr Drug Dosing 76.5 ml/min 12/15/21 06:14 Est GFR ( Amer) 85.3 ml/min 12/15/21 06:14 Est GFR (Non-Af Amer) 73.6 ml/min 12/15/21 06:14 BUN/Creatinine Ratio 26.7 (10-20) H 12/15/21 06:14 Glucose 119 mg/dl (70-99(Fasting)) H 12/15/21 06:14 Calcium 8.6 mg/dl (8.5-10.1) 12/15/21 06:14 SARS-CoV-2, RNA, NAAT NEGATIVE (NEGATIVE) 12/14/21 10:50 Impressions Shoulder X-Ray 12/14/21 17:01 XR shoulder LT min 2V routine CLINICAL HISTORY: Post shoulder surgery. Status post total shoulder replacement COMPARISON STUDY: No previous studies for comparison. TECHNIQUE: 2 left shoulder views FINDINGS: The patient is status post total shoulder replacement with humeral head and glenoid components. The prosthetic components are in anatomic alignment with no acute abnormality identified. Skin roxy are present from the recent procedure. IMPRESSION: 1. Status post total shoulder replacement. ACT 112: Negative or not required by law. Electronically signed by: Priyank Hardin M.D. 12/14/2021 5:39 PM
[2021-12-15] MEDS ORDERED: OXYBUTYNIN CHLORIDE XL 5 MG TABCR PO SCH (09:00)
[2021-12-15] MEDS ORDERED: FLUTICASONE/VILANTEROL 100/25MCG 14 PUFFS/INHALER INH SCH (09:00)
[2021-12-15] MEDS ORDERED: METOPROLOL SUCC 50MG EXT REL TAB PO SCH (09:00)
[2021-12-15] MEDS ORDERED: ASPIRIN 81 MG ECTAB PO SCH (09:00)
[2021-12-15] MEDS ORDERED: ATORVASTATIN 10 MG TAB PO SCH (09:00)
[2021-12-15] MEDS ORDERED: PANTOprazole 40 MG TAB PO SCH (09:00)
[2021-12-15] MEDS ORDERED: MULTIVITAMIN TAB PO SCH (09:00)
--- NOTE | 2021-12-15 11:23 | Hospitalist Progress Note ---
Date of Service December 15, 2021 Assessment & Plan (1) Rotator cuff arthropathy of left shoulder: Plan: -S/P left reverse total shoulder arthroplasty. Without complication. -Defer pain/abx/IVF/bowel regimen/anticoagulation to primary team. -BMP and CBC reviewed and normal post operatively (2) Atrial fibrillation: Plan: -Follows with Dr. Hook ([place]), states he was recently taken off anticoagulat ion by skiver hand given absence of significant arrhythmias on recent loop recorder interrogation. -Continue metoprolol 100 mg daily. (3) CAD (coronary artery disease): Plan: -Continue statin, b-nai, ASA daily. (4) Hypertension: Plan: -Continue metoprolol. (5) Hyperlipidemia: Plan: -Continue atorvastatin 10 mg daily. (6) Asthma: Plan: -Continue Breo inhaler daily. -Albuterol inhaler PRN, has not required in 6+ months. (7) GERD (gastroesophageal reflux disease): Plan: -Takes omeprazole 40 mg daily, switch to Protonix per hospital formulary. (8) Glaucoma: Plan: -Continue eye drops. (9) Overactive bladder: Plan: -Continue oxybutynin. (10) Sleep apnea: Plan: -CPAP at night, has home machine. Plan: Thank you for the consult, we will sign off at this time. No change to home medications for chronic medical conditions recommended. Admission and Anticipated Discharge Date Admission Date: December 14, 2021 Subjective Pain well controlled. No acute concerns or questions. Good advertisement compositor strength and sensation back to normal in left fingers. Review of Systems Review of Systems: All systems reviewed & are unremarkable except as noted in Subjective Physical Exam Constitutional: WD/WN, vitals as above Eyes: + anicteric sclerae; normal pupil size Respiratory: normal respiratory effort, lungs clear to auscultation Cardiovascular: RRR, no murmur, no edema Gastrointestinal (Abdomen): Percussion/Palpation: abdomen soft; abdomen nontender Skin: no rashes, warm and dry Neurologic: awake; not confused Motor/Sensory: + sensory deficit (left fingers) Normal left advertisement compositor strength Results & Data Results & Data ([facility]) Vital Signs (Past 12 Hours) Vital Signs Temp Pulse Pulse Pulse Resp BP Pulse Ox 12/15/21 11:10 36.6 C 65 68 73 18 145/85 H 94 12/15/21 07:43 36.6 C 73 18 145/85 H 94 12/15/21 02:43 36.5 C 68 16 129/84 94 PG Care Time/CCT Total # of Minutes Spent Total Time Spent with Patient: Total time spent is greater than 50% in coordination of care (as documented) at patient's floor/unit and/or counseling patient: Coding Level of Care Code 43449 Subseq Hosp Care Lvl 1 Diagnoses Rotator cuff arthropathy of left shoulder M12.812 Atrial fibrillation I48.91 CAD (coronary artery disease) I25.10 Hypertension I10 Hyperlipidemia E78.5 Asthma J45.909 GERD (gastroesophageal reflux disease) K21.9 Glaucoma H40.9 Overactive bladder N32.81 Sleep apnea G47.30
--- NOTE | 2021-12-17 20:14 | Discharge Summary ---
Date of Service December 17, 2021 Admission HPI Per Admitting Provider Patient is 66-year-old male with past medical history significant for hypertension, NIRAV, asthma, GERD, A. fib, CAD, high cholesterol who presents with chronic left shoulder pain. Patient has a massive retracted chronic rotator cuff tear. History of prior rotator cuff repair. Pain is interfering with his daily activities. He has failed conservative measures. He would like to proceed with surgical intervention. Patient denies headaches, sweats, fevers, chills, double vision, blurred vision, cough, sore throat, dysphagia, chest pain, sob, wheezing, n/v/d/c, numbness, tingling, fatigue, urinary symptoms, mood disorders. ROS positive for left shoulder pain and stiffness. Admission Exam Per Admitting Provider Constitutional: well developed and well nourished; no acute distress Eyes: PERRL, conjunctivae normal, anicteric sclerae ENMT: external ear and nose normal, oropharynx normal Neck: trachea midline, no thyromegaly Respiratory: normal respiratory effort, lungs clear to auscultation Cardiovascular: RRR, no murmur, no edema Musculoskeletal: Left shoulder: Crepitus noted with range of motion. Positive Moon, positive drop arm test and Hornblower sign. Active painful range of motion. Forward flexion to 120 degrees, abduction 130 degrees. Pain and weakness noted with strength testing. Skin: no rashes, warm and dry Neurologic: patellar DTR's 2+ bilat, sensation intact Psychiatric: A+Ox3, euthymic affect Principal Diagnosis Left shoulder rotator cuff arthropathy Discharge Exam Left shoulder: Patient sitting up in bed awake and alert. Sling is in place. Dressings are clean, dry, and intact. He has good range of motion of his fingers and wrist with good strength. Residual decreased sensation with numbness and tingling. Capillary refills less than 2 seconds. Hemovac drainage is 75 mL. Constitutional well developed and well nourished; no acute distress Discharge Data Allergies Allergy/AdvReac Type Severity Reaction Status Date / Time oxycodone [From OxyContin] AdvReac Mild HIVES, Verified 12/14/21 10:58 NAUSEA Consultations 12/14/21 05:00 Consult Hospitalist Routine Procedures Performed Operation Date: 12/14/21 12:15 Actual Procedures p Left Reversed Total Shoulder Arthroplasty(Left) - Pablo Delgado MD Ordered Studies 12/14/21 05:00 US - OR guided needle placemen Routine Hospital Course (1) Rotator cuff arthropathy of left shoulder: Patient presented for same day admission following left reverse TSA on 12/14/21. He tolerated procedure well. The Patient had an uneventful hospital course. Post-operatively, his activity was progressed and well tolerated. They participated in PT without complication. Labs remained stable- lowest hemoglobin recorded: 13.8. Dr. Tiago Fry of medical service was consulted for medical management during admission. Pain controlled on oral medications. Please refer to daily progress notes and PT notes for complete details. After exam on 12/15/21, patient was felt to be stable for discharge home. Patient will f/u in the office in about 2 weeks for further evaluation including x-rays and incision check, sooner if having any issues or concerns. Postop day 1 status post left reverse total shoulder arthroplasty PT/OT protocols. Nonweightbearing left upper extremity. DVT prophylaxis-aspirin daily, SCDs. Pain management-patient with history of oxycodone allergy. Switched to [place] at this time. DC planning-plan for discharge to home today. No official PT protocol to be started as outpatient until seen back in the office. Lab Results 12/14/21 12/15/21 12/15/21 Range/Units 10:50 06:14 06:14 WBC 11.97 H (4.8-10.8) K/uL RBC 4.56 L (4.7-6.1) M/uL Hgb 13.8 L (14.0-18.0) g/dL Hct 39.7 L (42-52) % MCV 87.1 (80-100) fL MCH 30.3 (25-34) pg MCHC 34.8 (32-36) g/dL RDW Std Deviation 42.9 (36.4-46.3) fL RDW Coeff of Danny 13.6 (11.5-14.5) % Plt Count 163 (130-400) K/uL MPV 9.2 (7.4-10.4) fL Immature Gran % (Auto) 0.2 % Neut % (Auto) 85.6 % Lymph % (Auto) 7.9 % [place] % (Auto) 6.3 % Eos % (Auto) 0.0 % Baso % (Auto) 0.0 % Neut # (Auto) 10.26 H (1.4-6.5) K/uL Lymph # (Auto) 0.94 L (1.2-3.4) K/uL [place] # (Auto) 0.75 H (0.11-0.59) K/uL Eos # (Auto) 0.00 (0-0.5) K/uL Baso # (Auto) 0.00 (0-0.2) K/uL Immature Gran # (Auto) 0.02 (0.00-0.02) K/uL Sodium 138 (136-145) mmol/L Potassium 4.2 (3.5-5.1) mmol/L Chloride 105 (98-107) mmol/L Carbon Dioxide 26 (21-32) mmol/L Anion Gap 7 (3-11) BUN 28 H (6-23) mg/dl Creatinine 1.05 (0.6-1.4) mg/dl Est Cr Clr Drug Dosing 76.5 ml/min Est GFR ( Amer) 85.3 ml/min Est GFR (Non-Af Amer) 73.6 ml/min BUN/Creatinine Ratio 26.7 H (10-20) Glucose 119 H (70-99(Fasting)) mg/dl Calcium 8.6 (8.5-10.1) mg/dl SARS-CoV-2, RNA, NAAT NEGATIVE (NEGATIVE) Total Time Total Time Spent Total Time Spent (In Minutes): 20 Discharge Plan Discharge Items Patient Disposition: Home - Self-Care Reason For Visit: Osteoarthritis left shoulder Discharge Diagnosis: Osteoarthritis Left Shoulder Activity: Per Instructions section Weightbearing: Left non-weightbearing Weightbearing Comment: sling at all times except for exercises, bathing, change of clothes Non-emergency contact: Surgeon Call non-emergency contact if: your pain is not controlled, your temperature is above 101.5 and your wound has increased redness Follow-up/Referrals: Pablo Delgado MD [Surgeon] - (follow up in 14 days for your first wound check) Pa Dooley MD [Primary Care Provider] - Diet: Regular Addtl Attending Provider Instructions: Your pain medication has Tylenol in it. Please do not take any more additional Tylenol at home. ACTIVITY RECOMMENDATIONS: SELF CARE INSTRUCTIONS AFTER TOTAL SHOULDER ARTHROPLASTY REVERSE A. You may do daily exercises as taught in physical therapy while in hospital. No lifting with the operative arm. B. You are to wear your sling/immobilizer at all times EXCEPT when performing your daily exercises and for hygiene purposes. C. You may perform dry, daily dressing changes. Please keep your incision covered. You may shower 48 hours after surgery. Do not apply soap or any ointme nt/lotions directly over incision. Do not soak incision in bath tub/swimming pool. D. You may use ice as needed to operative shoulder. SPECIAL CARE INSTRUCTIONS: VERY IMPORTANT TO READ AND REVIEW A. There are a few signs you need to watch for after you are home. Call [facility] at [phone] if you experience any of the followin. Increased severe shoulder pain. Some pain is expected especially when you exercise. 2. Increased swelling in you shoulder or arm; pain or swelling in either upper extremity. 3. Any fluid drainage from the incision. 4. Shortness of breath or chest pain. B. Please call [facility] at [phone] if you have any questions or concerns about your operation or recovery. C. Call your physician if: 1. Temperature is greater than 101 degrees (F). 2. Pain is not relieved by prescribed pain medications. 3. Increase drainage or redness from incision. 4. Unanswered questions or concerns. FOLLOW UP VISIT: Please call [facility] at [phone] to schedule a follow up appointment with Dr. Delgado or his PA in 12-14 days from your surgery date. Visit Report Forms: Smoking Cessation Stand-Alone Forms: [facility], Opioid Pain Management, Smoking Cessation Medications and DC Order Prescriptions: New polyethylene glycol 3350 [Miralax] 17 gram powder in packet 17 g PO DAILY PRN (Reason: constipation) Qty: 5 RF: 0 cefadroxil 500 mg capsule 500 mg PO BID Qty: 14 RF: 0 hydrocodone-acetaminophen 5-325 mg tablet 1 - 2 tab PO Q6H MDD 8 tabs PRN (Reason: pain) Qty: 30 RF: 0 Continued celecoxib [Celebrex] 200 mg Capsule 200 mg PO QAM RF: 0 oxybutynin chloride 15 mg Tablet Extended Release 24 Hr 15 mg PO QAM RF: 0 atorvastatin [Lipitor] 10 mg Tablet 10 mg PO QAM RF: 0 metoprolol succinate [Toprol XL] 100 mg Tablet Extended Release 24 Hr 100 mg PO QAM RF: 0 omeprazole 40 mg Capsule,Delayed Release(Dr/Ec) 40 mg PO QAM RF: 0 brimonidine-timolol [Combigan] 0.2-0.5 % Drops 1 drp OPHTHALMIC (EYE) BID RF: 0 Lumigan 0.01 % Drops 1 drp OPHTHALMIC (EYE) PM RF: 0 dorzolamide (PF) 2 % Drops 1 drp OPHTHALMIC (EYE) BID RF: 0 aspirin 81 mg Tablet,Delayed Release (Dr/Ec) 81 mg PO QAM RF: 0 Breo Ellipta 100-25 mcg/dose Blister With Device 1 inh INHALATION QAM RF: 0 albuterol sulfate 90 mcg/actuation Hfa Aerosol Inhaler 2 puff INHALATION 6XD PRN (Reason: Wheezing) RF: 0 Discontinued acetaminophen [Tylenol Ex Str Rapid Release] 500 mg Tablet 500 mg PO Q6H PRN (Reason: Pain) RF: 0 Discharge Orders: Discharge Order (Routine); Ordered 12/15/21 Ordered By: Christopher Verdin/Other Patient Handouts: Reverse Total Shoulder Replacement Admission Data Admit Date/Time: 12/14/21 17:01 Attending Provider: Pablo Delgado Admit Provider: Pablo Delgado Primary Care Provider: Pa Dooley Other Providers: Tiago Fry Other Interventions: Discharge Summary Assessment (RN) Last Done: 12/15/21 11:10
== END 2021-12-15 11:15 | disposition home or self-care (01) ==
LOC: ASU 10:31 → 3E 10:31

== ENCOUNTER 2024-10-06 12:40 | Inpatient (IN) ==
--- NOTE | 2024-09-23 13:47 | PAT Medication Instructions ---
Medication Instructions Date of Service September 23, 2024 Home Medications Medication Instructions Recorded polyethylene glycol 3350 17 gram 17 g PO DAILY PRN constipation #5 12/15/21 oral powder packet (Miralax) ea Medication List: albuterol sulfate 90 mcg/actuation aerosol inhaler 2 puff inhalation 6XD PRN Wheezing aspirin 81 mg tablet,delayed release 81 mg PO QAM atorvastatin 10 mg tablet (Lipitor) 10 mg PO QAM bimatoprost 0.01 % eye drops (Lumigan) 1 drp ophthalmic (eye) PM brimonidine 0.2 %-timolol 0.5 % eye drops (Combigan) 1 drp ophthalmic (eye) BID dorzolamide (PF) 2 % (PF) eye drops 1 drp ophthalmic (eye) BID fluticasone furoate 100 mcg-vilanterol 25 mcg/dose inhalation powder (Breo Ellipta) 1 inh inhalation QAM PRN sob metoprolol succinate 100 mg tablet,extended release 24 hr (Toprol XL) 100 mg PO QAM omeprazole 40 mg capsule,delayed release 40 mg PO Q2D oxybutynin chloride 15 mg tablet,extended release 24 hr 15 mg PO QAM polyethylene glycol 3350 17 gram oral powder packet (Miralax) 17 g PO DAILY PRN constipation famotidine 40 mg tablet 40 mg PO Q2D MEDICATION INSTRUCTIONS: Continue as directed albuterol sulfate 90 mcg/actuation aerosol inhaler 2 puff inhalation 6XD PRN Wheezing (use if needed; BRING TO HOSPITAL) bimatoprost 0.01 % eye drops (L[place]igan) 1 drp ophthalmic (eye) PM brimonidine 0.2 %-timolol 0.5 % eye drops (Combigan) 1 drp ophthalmic (eye) BID dorzolamide (PF) 2 % (PF) eye drops 1 drp ophthalmic (eye) BID fluticasone furoate 100 mcg-vilanterol 25 mcg/dose inhalation powder (Breo Ellipta) 1 inh inhalation QAM PRN sob ASK your prescriber and surgeon aspirin 81 mg tablet,delayed release 81 mg PO QAM DO NOT take the morning of surgery oxybutynin chloride 15 mg tablet,extended release 24 hr 15 mg PO QAM polyethylene glycol 3350 17 gram oral powder packet (Miralax) 17 g PO DAILY PRN constipation Take morning of surgery With a small sip of water, OTHERWISE NOTHING TO EAT OR DRINK AFTER MIDNIGHT: atorvastatin 10 mg tablet (Lipitor) 10 mg PO QAM metoprolol succinate 100 mg tablet,extended release 24 hr (Toprol XL) 100 mg PO QAM famotidine 40 mg tablet 40 mg PO Q2D omeprazole 40 mg capsule,delayed release 40 mg PO Q2D Other Notes If you have any questions please call us at [phone] or [phone] or [phone] or [phone]
--- NOTE | 2024-09-30 11:42 | Anesthesiology Consultation ---
Date of Service September 30, 2024 Assessment & Plan (1) Encounter for pre-operative examination: Chart Review Chart Review: Acceptable Risk for Surgery (pending surgeon ordered PCP/cardio clearances and [address] if available ) and Patient seen in Pre Admission Testing - [facility]24[facility] [place] - Awaiting cardio clearance scheduled 10/02/24 (Dr. Payton[facility]) - Please obtain 2023 CT thorax results from either [facility] or cardio office Per patient- has had bradycardia with anesthesia in the past Per PAT appt on 09/30/24, no recent illness/disease exposures, illness related symptoms, or recent illness/disease positive tests. Will leave to surgeon's discretion if preop Covid testing needed Left shoulder reverse total shoulder 12/14/21= done under [place] with Grade 1 view with MAC #4. ETT #7.0. Teaching & Discussion Pre-Anesthesia Teaching/Discussion Notes: Instructed NPO after midnight before surgery,except medications with 15 cc of water. Medication instructions provided according to the PAT guidelines. History Surgery Operation Date: 10/06/24 14:20 Proposed Procedures p Left Knee Patellar Revision to Tantalum Patella - Pablo Delgado MD Height/Weight Height: 5 ft 9 in Weight: 86 kg Allergies Allergy/AdvReac Type Severity Reaction Status Date / Time oxycodone [From OxyContin] Allergy Severe hives, Verified 09/16/24 11:31 facial swelling and nausea Medications Home Medications Medication Instructions Recorded Confirmed Last Taken albuterol sulfate 90 mcg/actuation 2 puff inhalation 6XD PRN Wheezing 11/29/21 09/16/24 Unknown aerosol inhaler aspirin 81 mg tablet,delayed 81 mg PO QAM 11/29/21 09/16/24 12/13/21 08:00 release atorvastatin 10 mg tablet (Lipitor) 10 mg PO QAM 11/29/21 09/16/24 12/13/21 08:00 bimatoprost 0.01 % eye drops 1 drp ophthalmic (eye) PM 11/29/21 09/16/24 12/13/21 20:00 ([place]) brimonidine 0.2 %-timolol 0.5 % 1 drp ophthalmic (eye) BID 03/09/16/24 12/14/21 07:30 eye drops (Combigan) dorzolamide (PF) 2 % (PF) eye drops 1 drp ophthalmic (eye) BID 11/29/21 09/16/24 12/14/21 07:30 fluticasone furoate 100 1 inh inhalation QAM PRN sob 11/29/21 09/16/24 12/14/21 07:30 mcg-vilanterol 25 mcg/dose inhalation powder (Breo Ellipta) metoprolol succinate 100 mg 100 mg PO QAM 11/29/21 09/16/24 12/14/21 07:30 tablet,extended release 24 hr (Toprol XL) omeprazole 40 mg capsule,delayed 40 mg PO Q2D 11/29/21 09/16/24 12/14/21 07:30 release oxybutynin chloride 15 mg 15 mg PO QAM 11/29/21 09/16/24 12/14/21 07:30 tablet,extended release 24 hr polyethylene glycol 3350 17 gram 17 g PO DAILY PRN constipation #5 12/15/21 09/16/24 Unknown oral powder packet (Miralax) ea famotidine 40 mg tablet 40 mg PO Q2D 09/16/24 09/16/24 Unknown Past Medical History Medical History (Updated 09/30/24 @ 12:02 by Jacque Fleming PA-C) Bradycardia asymptomatic per cardio records - likely secondary to metoprolol- no change in meds per cardio CAD (coronary artery disease) minimal - history of 2 caths (2005 and 2009, not definitive dates) per cardio records DJD (degenerative joint disease) GERD (gastroesophageal reflux disease) well controlled and stable Glaucoma has high eye pressure- eye drops are keeping the pressure down History of asthma no recent issues, has inhalers PRN (remote history of last use) History of atrial fibrillation - Possible hx (baseline artifact made interpretation difficult at the time per records) - Follows with Dr. Payton ([place]), states was taken off anticoagulation by picture copyist (~2020) given absence of significant arrhythmias on loop recorder interrogation (still has loop recorder present) History of prostate cancer (2019) radiation + prostatectomy Hyperlipidemia Hypertension Prediabetes per PCP records - pt denies Sleep apnea cpap at night Thoracic aortic ectasia Per cardio records Exercise / Class Metabolic Activity II 4-5 Yardwork/Stairs/Walk up hill (one flight of stairs - no chest pain or SOB ) Past Family History Family History Grandmother (Paternal) Family history of diabetes mellitus Other No family history of adverse response to anesthesia Past Surgical History Surgical History History of appendectomy History of cardiac cath NO [facility]ENTS-[facility]- (~) History of colonoscopy 2018 History of esophagogastroduodenoscopy (EGD) History of hand surgery left finger (tendon reattachment) History of loop recorder (~2020) in place currently - monitors with Dr Payton. History of prostatectomy History of repair of anterior cruciate ligament of right knee History of shoulder surgery Left x2 History of total knee replacement Left Nausea and vomiting after administration of anesthetic agent S/P left rotator cuff repair (2021) Dr Delgado Past Anesthesia History No Hx of Anesthesia Complications (with exception to PONV ; also bradycardia with several procedures in the past with anesthesia per patient) and No Family Hx of Anesthesia Complications History of PONV History of PONV (improved with pre treatment of anti- nausea medication) and Hx of Motion Sickness Social History Smoking Status: Never smoker Do You Dip or Chew Tobacco: No Hx Alcohol Use: No Hx Substance Use: No substance use type: does not use Review of Systems Patient denies chest pain, shortness of breath, dyspnea on exertion, cough, wheezing, palpitations. No hx of seizures, stroke, RI. No hx of blood clots or blood transfusions Physical Exam Vital Signs VITALS BP 119/84 P 71 TEMP 97.9 SP02 96% RESP Constitutional no acute distress ENMT Mouth: no TMJ clicking Thyromental Distance: > or= 3.5 Finger Breadths (3.5) Mallampati Class: II Missing molars and side teeth Neck + short neck and + limited neck extension (mild) Respiratory normal respiratory effort; no respiratory distress Auscultation: lungs clear to auscultation bilaterally; no wheezes Cardiovascular Rate/Rhythm: regular rate and regular rhythm Heart Sounds: no murmur Vessels: no carotid bruit Musculoskeletal Spine: no pain with cervical ROM Extremities: extremities normal to inspection Psychiatric Orientation: alert Lab Results Anesthesia Preop Results Results Anesthesia Widget: PT 11.8 Seconds (9.0-12.0) 09/30/24 PTT 25 Seconds (21-31) 09/30/24 INR 1.1 (0.9-1.1) 09/30/24 Urine Color Yellow 09/30/24 Urine Appearance Clear (Clear) 09/30/24 Urine pH 5.5 (4.5-7.5) 09/30/24 Urine Specific [place] 1.005 (1.000-1.030) 09/30/24 Urine Protein Negative (Negative) 09/30/24 Urine Glucose (UA) Negative (Negative) 09/30/24 Urine Ketones Negative (Negative) 09/30/24 Urine Blood Negative (Negative) 09/30/24 Urine Nitrite Negative (Negative) 09/30/24 Urine Bilirubin Negative (Negative) 09/30/24 Urine Urobilinogen Negative (Negative) 09/30/24 Urine Leukocyte Esterase Negative (Negative) 09/30/24 Blood Type AB Positive 09/30/24 Antibody Screen NEGATIVE 09/30/24 Testing Laboratory Results 09/16/24= WBC: 3.8 H/H: 14.2/42.7 PLATELETS: 175 SODIUM: 142 POTASSIUM: 4.4 CHLORIDE: 104 CO2: 25 BUN: 16 CREATININE: 0.7 GLUCOSE: 81 HGB A1C: 5.7 Electrocardiogram Date: 09/30/24 Findings: + NSR @ (65bpm) Normal EKG per cardio Chest X-Ray Date: 09/30/24 Findings: + NAD FINDINGS: Left shoulder arthroplasty is partially imaged. Electronic device projects over the chest. Mild cardiomegaly is unchanged. No evidence for pulmonary edema or pneumonia. There are several old right rib fractures. Appearance of the chest is unchanged. Echocardiogram Date: 10/28/20 Other Findings: no LVH EF 55-60% Normal wall motion Mild right and left atrial enlargement Mild right ventricular enlargement Mild tricuspid regurgitation Mild mitral regurgitation Mild pulmonic insufficiency Diastolic function is indeterminate Stress Test Date: 10/28/20 Type: nuclear Based upon EKG criteria, this test is negative Based upon the nuclear imaging - there is no evidence of myocardial ischemia or infarction Study is normal.
--- NOTE | 2024-10-06 06:43 | History & Physical Report ---
Date of Service October 06, 2024 Assessment & Plan (1) Avascular necrosis of left patella: Plan: Avascular necrosis of the left patella status post left total knee arthroplasty with loosening of patella component. Plan is to proceed with excision of loose patella component and excision of some of the fragmented bone fragments and placement of a tantalum patella replacement. (2) Status post left knee replacement: History of Present Illness Chief Complaint: Left knee pain, status post left knee replacement. Primary Care Provider: Pa Dooley MD 68-year-old male 8 years post total knee replacement who had development of pain related to avascular necrosis of his patella and has loosening of patella component now. Patient denies headaches, sweats, fevers, chills, double vision, blurred vision, cough, sore throat, dysphagia, chest pain, sob, wheezing, n/v/d/c, numbness, tingling, fatigue, urinary symptoms, mood disorders. ROS positive for acid reflux and hiatal hernia Allergies Allergy/AdvReac Type Severity Reaction Status Date / Time oxycodone [From OxyContin] Allergy Severe hives, Verified 09/16/24 11:31 facial swelling and nausea Home Medications Medication Instructions Recorded Confirmed Type albuterol sulfate 90 mcg/actuation 2 puff inhalation 6XD PRN Wheezing 11/29/21 09/16/24 History aerosol inhaler aspirin 81 mg tablet,delayed 81 mg PO QAM 11/29/21 09/16/24 History release atorvastatin 10 mg tablet (Lipitor) 10 mg PO QAM 11/29/21 09/16/24 History bimatoprost 0.01 % eye drops 1 drp ophthalmic (eye) PM 11/29/21 09/16/24 History ([place]) brimonidine 0.2 %-timolol 0.5 % 1 drp ophthalmic (eye) BID 11/29/21 09/16/24 History eye drops (Combigan) dorzolamide (PF) 2 % (PF) eye drops 1 drp ophthalmic (eye) BID 11/29/21 09/16/24 History fluticasone furoate 100 1 inh inhalation QAM PRN sob 11/29/21 09/16/24 History mcg-vilanterol 25 mcg/dose inhalation powder (Breo Ellipta) metoprolol succinate 100 mg 100 mg PO QAM 11/29/21 09/16/24 History tablet,extended release 24 hr (Toprol XL) omeprazole 40 mg capsule,delayed 40 mg PO Q2D 11/29/21 09/16/24 History release oxybutynin chloride 15 mg 15 mg PO QAM 11/29/21 09/16/24 History tablet,extended release 24 hr polyethylene glycol 3350 17 gram 17 g PO DAILY PRN constipation #5 12/15/21 09/16/24 Rx oral powder packet (Miralax) ea famotidine 40 mg tablet 40 mg PO Q2D 09/16/24 09/16/24 History Past Med/Surg History Problem List (Updated 10/06/24 @ 06:41 by Pablo Delgado MD) Status post left knee replacement Avascular necrosis of left patella Overactive bladder Rotator cuff arthropathy of left shoulder Encounter for pre-operative examination GERD (gastroesophageal reflux disease) controlled, stable per pt Sleep apnea CPAP-compliant Asthma last rescue inhaler use > 6 mos ago Glaucoma has high eye pressure- eye drops are keeping the pressure down Hypertension controlled, stable per pt Hyperlipidemia Left knee DJD Medical History Bradycardia asymptomatic per cardio records - likely secondary to metoprolol- no change in meds per cardio Thoracic aortic ectasia Per cardio records CAD (coronary artery disease) minimal - history of 2 caths (2005 and 2009, not definitive dates) per cardio records Hyperlipidemia Hypertension Glaucoma has high eye pressure- eye drops are keeping the pressure down GERD (gastroesophageal reflux disease) well controlled and stable History of atrial fibrillation - Possible hx (baseline artifact made interpretation difficult at the time per records) - Follows with Dr. Payton ([place]), states was taken off anticoagulation by loom tuner (~2020) given absence of significant arrhythmias on loop recorder interrogation (still has loop recorder present) Sleep apnea cpap at night History of asthma no recent issues, has inhalers PRN (remote history of last use) History of prostate cancer (2018) radiation + prostatectomy Prediabetes per PCP records - pt denies DJD (degenerative joint disease) Surgical History S/P left rotator cuff repair (2021) Dr Delgado History of repair of anterior cruciate ligament of right knee History of esophagogastroduodenoscopy (EGD) History of colonoscopy 2018 Nausea and vomiting after administration of anesthetic agent History of appendectomy History of hand surgery left finger (tendon reattachment) History of shoulder surgery Left x2 History of total knee replacement Left History of prostatectomy History of cardiac cath NO [facility] (~) History of loop recorder (~2020) in place currently - monitors with Dr Payton. Family History Grandmother (Paternal) Family history of diabetes mellitus Other No family history of adverse response to anesthesia Social History Smoking Status: Never smoker Second Hand Exposure: No; Do You Dip or Chew Tobacco: No; Tobacco Cessation Education Requested by Patient: No Hx Alcohol Use: No Hx Substance Use: No Preferred Language: Bahamian Communication Ability: Effective Job Training Specialist Required: No Beliefs That Will Affect Care: None marital status: Current Living Situation: Spouse current occupational status: retired Other Information That Helps Us Care for You: No Feels Safe at Home: Yes Safety Concerns: Feels Safe At This Time Assistive Devices: Glasses and Hearing Aid - Bilateral Review of Systems All systems reviewed & are unremarkable except as noted in HPI & below Physical Exam Constitutional: WD/WN, vitals as above Respiratory: normal respiratory effort; no respiratory distress Cardiovascular: Rate/Rhythm: regular rate and regular rhythm Musculoskeletal: Left knee has scar from prior joint replacement surgery with moderately large effusion no instability polyethylene post stable with posterior drawer. Patient has patellofemoral crepitation. 0 through 135 degrees range of motion. Distal neurocirculatory exam intact. Skin: no rashes, warm and dry Neurologic: normal touch/pain/proprioception Psychiatric: A+Ox3, euthymic affect Results & Data Diagnostic Findings Radiographs demonstrate fragmentation of the patella consistent with avascular necrosis with loose patella component although it is still centrally aligned. Femoral and tibial components are intact without loosening.
[~2024-10-06 12:40] MED LIST changes: -ACETAMINOPHEN 500 MG TAB PO SCH; -CeleBREX 200 MG CAP PO SCH; -FAMOTIDINE 20 MG TAB PO SCH; -GABAPENTIN 300 MG CAP PO SCH; -LR 15ML/HR IV SCH; -METOCLOPRAMIDE HCL 10 MG TABLET PO SCH; +ROPIVACAINE 0.5% 5 MG/ML 30 ML VIAL ONE; -TRANEXAMIC ACID 1,000 MG **IV Intra-op IV SCH; -TRANEXAMIC ACID 1,000 MG **IV Pre-op IV SCH; -dexAMETHasone 4 MG TAB PO SCH
[2024-10-06] MEDS: LR 500ML BOLUS, THEN 15ML/HR IV SCH (13:20)
[2024-10-06] MEDS: VANCOMYCIN HCL 1,250 MG in SODIUM CHLORIDE 0.9% 250 ML IV SCH (13:20)
[2024-10-06] MEDS: METOCLOPRAMIDE HCL 10 MG TABLET PO SCH (13:34)
[2024-10-06] MEDS: LR 60ML/HR IV SCH (13:34)
[2024-10-06] MEDS: dexAMETHasone**PF** 10 MG/ML VIAL IV SCH (13:34)
[2024-10-06] MEDS: GABAPENTIN 300 MG CAP PO SCH (13:34)
[2024-10-06] MEDS ORDERED: PROPOFOL IV EMULSION 10 MG/ML 20 ML VIAL IV ONE (13:34)
[2024-10-06] MEDS: CeleBREX 200 MG CAP PO SCH (13:34)
[2024-10-06] MEDS ORDERED: PROPOFOL IV EMULSION 10 MG/ML 100 ML VIAL IV ONE ×2 (13:34→14:17)
[2024-10-06] MEDS: FAMOTIDINE 20 MG TAB PO SCH (13:34)
[2024-10-06] MEDS: ACETAMINOPHEN 500 MG TAB PO SCH (13:34)
[2024-10-06] MEDS ORDERED: MIDAZOLAM HCL 1 MG/ML 2ML VIAL ONE (13:35)
[2024-10-06] MEDS ORDERED: fentaNYL citrate PF 100 MCG/2 ML VIAL ONE (13:35)
[2024-10-06] MEDS ORDERED: ONDANSETRON INJ 2 MG/ML 2 ML VIAL IV PRN (13:52)
[2024-10-06] MEDS ORDERED: fentaNYL citrate PF 100 MCG/2 ML VIAL IV PRN (13:52)
[2024-10-06] MEDS ORDERED: ePHEDrine sulfate 50 MG/ML AMP IV PRN (13:52)
[2024-10-06] MEDS ORDERED: ATROPINE SULFATE 0.1 MG/ML 10ML SYR IV PRN (13:52)
[2024-10-06] MEDS: TRANEXAMIC ACID 1,000 MG **IV Pre-op IV SCH (14:08)
[2024-10-06] MEDS ORDERED: KETAMINE HCL 10MG/ML SYR ONE (14:13)
--- NOTE | 2024-10-06 14:20 | History & Physical Bridge Note ---
Date of Service October 06, 2024 History & Physical Bridge Note I have examined the patient, reviewed the History & Physical and in the interval since the performance of the History & Physical I have noted the following changes of clinical significance: no changes noted
[2024-10-06] MEDS: ceFAZolin 2000MG 2,000 MG/15 ML SYR IV SCH ×2 (14:32→23:16)
[2024-10-06] MEDS ORDERED: GLYCOPYRROLATE 0.2 MG/ML VIAL ONE (16:32)
[2024-10-06] MEDS ORDERED: ONDANSETRON INJ 2 MG/ML 2 ML VIAL ONE (16:59)
[2024-10-06] MEDS: TRANEXAMIC ACID 1,000 MG **IV Intra-op IV SCH (17:20)
[2024-10-06] MEDS: ROPIVACAINE 0.5% HCL/PF 246 MG, Ketorolac (*for OR use only*) 30 MG in SODIUM CHLORIDE ... INFIL SCH (17:36)
[2024-10-06] MEDS: ORTHO JOINT ANESTHETIC ONE (17:47)
--- NOTE | 2024-10-06 18:24 | Operative Report ---
Post Operative Report Pre & Post Diagnosis Operation Date: 10/06/24 14:20 Pre-Op Diagnosis: Avascular Necrosis of Left Patella, status post left knee replacement Post-Op Diagnosis: Avascular Necrosis of Left Patella, knee synovitis, avascular patellar bone fragments, status post left knee replacement I identified the patient and participated in the time-out.: Yes Procedure Operation Date: 10/06/24 14:20 Actual Procedures p Left Knee Patellar Revision to Tantalum Patella(Left), excision avascular patellar bone fragments, electrocautery synovectomy. Application tez and Acticoat superficial wound VAC Pablo Delgado MD Surgeon Pablo Delgado MD Lending Manager Remi CARRILLO Estimated Blood Loss 50 Findings Consistent with Post-Op Diagnosis Specimens None Drains 2 Hemovac Anesthesia Type MAC Spinal Regional Complications none Disposition Disposition: Recovery Room Indications 68-year-old male 8 years post primary left total knee replacement who developed avascular necrosis and patellar loosening and now has patella pain. Femoral- tibial components well-fixed well aligned. Description of Procedure Patient had spinal and regional block anesthetic placed placed supine on the operating table. A pneumatic tourniquet was placed by the left upper thigh. The left lower extremity was prepped and draped with ChloraPrep. Exam demonstrated full extension and flexion to 135 degrees. There is no instability. The patella tracks centrally despite the patella being loose and the patella being fragmented radiographically. The leg was elevated exsanguinated with Esmarch bandage and pneumatic tourniquet raised to 300 mmHg. The old scar was used for anterior longitudinal incision. Subcutaneous flaps were carefully elevated. An incision was made through the medial retinaculum up into the mid third of the quadriceps tendon and down along the medial retinaculum to the medial tibial tubercle area. Intra-articular findings demonstrated chronic synovitis some hemosiderin deposits consistent with some bleeding due to irritation. The patella was fragmented and the patella polyethylene was completely intact but loose. This was easily removed. There were multiple avascular bone fragments of the patella. There was a large lateral fragment that was smooth down from articulation with the lateral condyle of the femoral component. The femoral component did not show any scratching or wear. Electrocautery synovectomy was performed removing the thickened inflamed synovial tissue in the gutters and suprapatellar pouch area. The larger loose avascular fragments were resected maintaining the extensor mechanism as a unit. I used a subperiosteal peel technique to expose the large bone fragment laterally and then used an oscillating saw with a small sawblade to saw majority of the large lateral fragment maintaining some of that bone for reattachment to the tantalum patella. The reamer for the Arun NexGen complete knee solution tantalum patella was used. The bone fragments were reamed thinner so that we could thin them down appropriately to get the appropriate patella thickness. A trial with a 19.5 mm thick component was appropriate. The knee was copiously irrigated with saline solution making sure there was no debris within the knee. Any bleeders were cauterized. The 19.5 mm thick NexGen complete knee solution tantalum metal patella was then sutured to the patella fragments and through the soft tissue of the extensor mechanism. This required drilling holes through the bone passing a tapered Zach needle with metal wire loop to pass the sutures. This was performed 12 times and this FiberWire sutures were passed with the knots on the inside using an arthroscopic knot pusher to tie the appropriate knots. Surgeons knots were created. Excellent fixation was obtained. The polyethylene component was then cemented to the metal patella. Drill holes were made to the medial bone fragment to achieve more substantial fixation through the patella and fiber tape from Arthrex or passed through the bone there. 6 tapes were placed. When 2 hours of tourniquet time occurred the tourniquet was let down and any bleeders were identified and cauterized. The knee was dwight irrigated with Xperience irrigation. The quadriceps tendon medial retinaculum was then closed with interrupted #2 FiberWire sutures spacing these intermittently along the entire repair. The fiber tapes were used to the medial retinaculum area along the patella medially. A 0 strata fix was used to reinforce the repair from the superior split in the quadriceps tendon down to the inferior aspect of the patella. Below that level interrupted [id number] #1 Vicryl sutures were utilized. Some orthomix was injected into the soft tissues adjacent to the repair. The knee was taken through full range of motion and 0 through 135 degrees range of motion, no tension on repair and the patella tracks centrally. The subcutaneous tissues were closed up to 2- 0 Vicryl sutures and the skin was closed with surgical roxy and a tez and Acticoat superficial wound VAC was applied. Remi CARRILLO participated as my primary teaching assistant and retracted soft tissue, helped me with suture management and placement of the implant, assisted in subcutaneous and skin closure and application of the wound VAC and will participate in postop care of the patient. Patient tolerated procedure well without complication. I attest to the content of the Intraoperative Record and any orders documented therein. Any exceptions are noted below.
--- NOTE | 2024-10-06 18:36 | XRay Report ---
INDICATION: Post-op evaluation. TECHNIQUE: 2 views of the left knee. COMPARISON: Radiograph from 08/29/2016. FINDINGS/IMPRESSION: Left knee hardware noted. Hardware appears intact with good position and alignment. No acute fracture or dislocation. Postoperative changes in the soft tissues with surgical drains present. Electronically signed by Luis Miguel Zimmerman 10-06-2024 6:36 PM
--- NOTE | 2024-10-06 18:36 | Anesthesiology Progress Note ---
Date of Service October 06, 2024 Anesthesia Post Procedure Vital Signs Vital Signs: Temp Pulse Pulse Resp BP Pulse Ox O2 Del Method 10/06/24 18:30 36.5 C 64 16 115/94 96 Nasal Cannula 10/06/24 18:20 66 16 129/87 95 Oxymask 10/06/24 18:10 68 18 117/84 96 Oxymask 10/06/24 18:00 36.9 C 70 15 120/84 96 Oxymask 10/06/24 13:21 36.6 C 52 L 20 173/89 H 97 Room Air O2 Flow Rate 10/06/24 18:30 2 10/06/24 18:20 3 10/06/24 18:10 3 10/06/24 18:00 6 10/06/24 13:21 Transfer of Care Handoff Completed per policy Notes Mental Status: alert / awake / arousable Patient Amnestic to Procedure: Yes Nausea / Vomiting: adequately controlled Pain: adequately controlled Airway Patency, RR, SpO2: stable & adequate BP & HR: stable & adequate Hydration State: stable & adequate Neuraxial Anesthesia: was administered and sensory block is resolving Anesthetic Complications: no major complications apparent and Pt Satisfied with anesthetic care
[2024-10-06] MEDS ORDERED: HYDROmorphone INJ 0.5 MG/0.5 ML SYR IV PRN (19:15)
[2024-10-06] MEDS ORDERED: MAGNESIUM HYDROXIDE SUSP 30 ML UDC PO PRN (19:15)
[2024-10-06] MEDS ORDERED: POLYETHYLENE (MIRALAX) 17 GM PACK PO PRN (19:15)
[2024-10-06] MEDS ORDERED: FLUTICASONE/VILANTEROL 100/25MCG 14 PUFFS/INHALER INH PRN (19:15)
[2024-10-06] MEDS ORDERED: METOCLOPRAMIDE HCL INJ 5 MG/ML 2 ML VIAL IV PRN (19:15)
[2024-10-06] MEDS ORDERED: diphenhydrAMINE Capsule 25 MG CAP PO PRN (19:15)
[2024-10-06] MEDS ORDERED: NALOXONE HCL 0.4 MG/1 ML VIAL/CARP IV PRN (19:15)
[2024-10-06] MEDS ORDERED: bisacodyL 10 MG SUPP PR PRN (19:15)
[2024-10-06] MEDS ORDERED: HYDROCODONE/ACETAMOPHEN 5/325MG TAB PO PRN (19:15)
[2024-10-06] MEDS ORDERED: TAMSULOSIN HCL 0.4 MG CAP PO PRN (19:15)
[2024-10-06] MEDS ORDERED: ALBUTEROL HFA 8 GM INHALER INH PRN (19:15)
[2024-10-06] MEDS ORDERED: ALUMINUM/MAGNESIUM SUSP 30 ML UDC PO PRN (19:15)
[2024-10-06] MEDS ORDERED: KETOROLAC TROMETHAMINE 15 MG/ML VIAL IV PRN (19:15)
[2024-10-06 19:19] VITALS: RESP 18
[2024-10-06] MEDS: SENNA 8.6 MG TAB PO SCH (20:28)
[2024-10-06] MEDS: DOCUSATE SODIUM 100 MG CAP PO SCH (20:28)
[2024-10-06] MEDS: TIMOLOL MALEATE 0.5% OP SOLN 5 ML BTL OP SCH (20:30)
[2024-10-06] MEDS: ASPIRIN 81 MG ECTAB PO SCH (20:30)
[2024-10-06] MEDS: BRIMONIDINE TARTRATE 0.2% 5ML OP SCH (20:31)
[2024-10-06] MEDS: BIMATOPROST 0.01% OP SOLN 2.5 ML BTL OP SCH (20:31)
[2024-10-06] MEDS: DORZOLAMIDE HCL 2% OPH SOLN 10 ML BTL OPB SCH (20:32)
[2024-10-06] MEDS ORDERED: NON-FORMULARY MEDICATION (Brimonidine-Timolol [Combigan] 0.2-0.5 % Drops) OP SCH (21:00)
[2024-10-06] MEDS: TRANEXAMIC ACID / 0.7% NACL 1,000 MG/100 ML BAG IV SCH (23:24)
[2024-10-07] MEDS: ONDANSETRON INJ 2 MG/ML 2 ML VIAL IV PRN (00:20)
[2024-10-07 06:27] LABS: Hematocrit (blood only) 34.6 % (42.0-52.0); Hemoglobin 12.5 g/dl (14.0-18.0); Mean Corpuscular Hemoglobin 29.6 pg (25.0-34.0); Mean Corpuscular Hgb Conc 36.1 g/dL (32.0-36.0); Mean Corpuscular Volume 81.8 fL (80.0-100.0); Mean Platelet Volume 9.1 fL (9.4-12.4); Platelet Count 173 K/uL (130-400); RDW Standard Deviation 38.4 fL (36.4-46.3); Red Blood Count 4.23 M/uL (4.70-6.10); White Blood Count 12.25 K/ul (4.8-10.8)
[2024-10-07 06:46] LABS: BUN Creatinine Ratio 22.3 (10-20); Calcium 9.1 mg/dl (8.6-10.3); Creatinine Clr Calc Pharmacy 81.6 ml/min; Potassium 3.9 mmol/L (3.5-5.1)
[2024-10-07 07:42] VITALS: BP 132/71; PULSE 64; TEMP 97.7; O2SAT 93
[2024-10-07] MEDS: dexAMETHasone 10 MG in SYRINGE 0 ML IV SCH (09:05)
[2024-10-07] MEDS: ATORVASTATIN 10 MG TAB PO SCH (09:06)
[2024-10-07] MEDS: FAMOTIDINE 40 MG TABLET PO SCH (09:10)
[2024-10-07] MEDS: MULTIVITAMIN TAB PO SCH (09:11)
[2024-10-07] MEDS: METOPROLOL SUCC 50MG EXT REL TAB PO SCH (09:11)
[2024-10-07] MEDS: OXYBUTYNIN CHLORIDE XL 5 MG TABCR PO SCH (09:12)
--- NOTE | 2024-10-07 09:51 | Orthopedic Progress Note ---
Date of Service October 07, 2024 Assessment & Plan (1) Avascular necrosis of left patella: Plan: Doing well postop day #1 status post excision of loose patella component and excision of some of the fragmented bone fragments and placement of a tantalum patella replacement, knee joint synovectomy PT/OTgentle range of motion of the left knee. DVT prophylaxisaspirin 81 mg twice daily, ELIE stockings Pain controlas written Plan for Hemovac removal prior to discharge. Discharge planningdischarge home today. (2) Status post left knee replacement: Admission and Anticipated Discharge Date Admission Date: October 06, 2024 Subjective Patient states the left knee is doing well. Pain is controlled in the knee. No complaints today. Physical Exam Constitutional: WD/WN, vitals as above no acute distress Musculoskeletal: Knee: + surgical incision (Left knee dressing is C/D/I) and + surgical drain present (Left knee Hemovac has drained 250 cc since surgery.); knee normal to inspection, no deformity, no skin erythema and no ecchymosis Skin: no rashes, warm and dry Trauma: no evidence of skin trauma Neurologic: normal touch/pain/proprioception (Left ankle dorsiflexion intact.) Psychiatric: A+Ox3, euthymic affect Speech: normal rate/rhythm/volume of speech Results & Data Vital Signs (Past 12 Hours) Vital Signs Temp Pulse Resp BP Pulse Ox O2 Del Method O2 Flow Rate 10/07/24 07:40 36.5 C 64 18 132/71 93 Room Air 10/07/24 03:32 36.3 C L 62 18 120/69 97 Nasal Cannula 2 10/06/24 22:16 36.5 C 68 18 131/80 94 Nasal Cannula 2
[2024-10-08] MEDS ORDERED: FAMOTIDINE 40 MG TABLET PO SCH (09:00)
[2024-10-08] MEDS ORDERED: PANTOprazole 40 MG TAB PO SCH (09:00)
--- NOTE | 2024-10-14 16:32 | Discharge Summary ---
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 Patient denies headaches, sweats, fevers, chills, double vision, blurred vision, cough, sore throat, dysphagia, chest pain, sob, wheezing, n/v/d/c, numbness, tingling, fatigue, urinary symptoms, mood disorders. 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 Discharge Exam Constitutional WD/WN, vitals as above no acute distress Musculoskeletal Knee: + surgical incision (Left knee dressing is C/D/I) and + surgical drain present (Left knee Hemovac has drained 250 cc since surgery.); knee normal to inspection, no deformity, no skin erythema and no ecchymosis Skin no rashes, warm and dry Trauma: no evidence of skin trauma Neurologic normal touch/pain/proprioception (Left ankle dorsiflexion intact.) Psychiatric A+Ox3, euthymic affect Speech: normal rate/rhythm/volume of speech Discharge Data Allergies Allergy/AdvReac Type Severity Reaction Status Date / Time oxycodone [From OxyContin] Allergy Severe hives, Verified 10/06/24 13:05 facial swelling and nausea Procedures Performed Operation Date: 10/06/24 14:20 Actual Procedures p Left Knee Patellar Revision to Tantalum Patella(Left) - Pablo Delgado MD Ordered Studies 10/06/24 05:00 US - OR guided needle placemen Routine Hospital Course (1) Avascular necrosis of left patella: Doing well postop day #1 status post excision of loose patella component and excision of some of the fragmented bone fragments and placement of a tantalum patella replacement, knee joint synovectomy PT/OTgentle range of motion of the left knee. DVT prophylaxisaspirin 81 mg twice daily, ELIE stockings Pain controlas written Plan for Hemovac removal prior to discharge. Discharge planningdischarge home today. (2) Status post left knee replacement: Total Time Total Time Spent Total Time Spent (In Minutes): 20 Discharge Plan Discharge Items Patient Disposition: Home - Home Health Services Reason For Visit: Avascular Necrosis of Left Patella Discharge Diagnosis: Left patella avascular necrosis post total knee arthroplasty Activity: Per Instructions section Non-emergency contact: Surgeon Call non-emergency contact if: your pain is not controlled, your pain is wo rsening and your temperature is above 101 Follow-up/Referrals: Pa Dooley MD [Primary Care Provider] - Diet: Regular Addtl Attending Provider Instructions: ACTIVITY RECOMMENDATIONS: SELF CARE INSTRUCTIONS AFTER REVISION PATELLA OF TOTAL KNEE REPLACEMENT A. You may need to continue a physical therapy program after discharge from the hospital. There are several options available to you. Your doctor will assist you in selecting the best one for you. 1. An out-patient facility 3 times a week for therapy. Physical therapy will perform gentle range of motion only of the left knee. 2. Home therapy for 1 to 2 weeks with outpatient therapy to follow. 3. Continue working on all exercises taught by physical therapy three times a day for 20 minutes on non-therapy days. Your goals should be to increase the bending of your knee to 90 degrees and beyond and to fully straighten your knee. Ice and elevate knee after exercise. B. Weight as tolerated with a walker or as instructed by your physician. C. It is okay to shower if minimal to no drainage from incision. No Baths. Do not soak wound. D. Make walking a part of your daily routine. Be up as much as comfortable with rest periods throughout the day. Rest with leg elevation is very important. Use the ice wrap frequently for the first 3-4 weeks. E. There are no restrictions on activities. You may ride in a car, shop, participate in fashion consultant and all social activities. F. Wear the long elastic stockings (ELIE hose) 20 hours a day for one month after surgery. They can be removed several times a day for laundering and when showering. G. You may return to previous diet. I. CONCHITA dressing: You have a CONCHITA dressing on your surgical wound. It will remain in place for 7 days from surgery. You will be provided with a booklet with the do's and don'ts with the dressing in place. After 7 days, the dressing may be removed. If there is drainage from the surgical incision, you may cover the wound with dry dressings SPECIAL CARE INSTRUCTIONS: VERY IMPORTANT TO READ AND REVIEW A. Take Coumadin, Xarelto, Aspirin or Lovenox (blood thinning medications) as directed by your doctor. If on Coumadin, have a pro-time (blood test) drawn according to your doctor's instructions. This will tell the doctor how well the Coumadin is thinning your blood. B. There are a few signs you need to watch for after you are home. Call [facility] if you notice any of the followin. Increased severe knee pain. Some pain is expected especially when you exercise. 2. Increased swelling in your leg or knee; pain or swelling of the calf muscle in either lower leg. 3. Any redness or fluid drainage from the incision. 4. Shortness of breath or chest pain. 5. A Temperature of 101 degrees F or greater. C. Please call [facility] at if you have any concerns or questions about your operation or recovery. The doctor or his nurse will return your call promptly. D. You must take antibiotics before dental work, bladder, bowel or other surgery. Your doctor will provide you with a permanent care to carry describing this precaution. FOLLOW UP VISIT: If appointment is not already scheduled: Please call [facility] to make a follow-up appointment for 2 weeks after your surgery at . Pending Studies at Discharge: No Stand-Alone Forms: My [facility] Spot Labs, Smoking Cessation Medications and DC Order Prescriptions: New aspirin 81 mg tablet,delayed release (DR/EC) 81 mg PO BID Qty: 60 0RF celecoxib [Celebrex] 200 mg capsule 200 mg PO Q12H Qty: 60 0RF hydrocodone-acetaminophen 5-325 mg tablet 1 tab PO Q4H PRN (Reason: pain) Qty: 20 0RF cefadroxil 500 mg capsule 500 mg PO Q12H Qty: 28 0RF Continued oxybutynin chloride 15 mg Tablet Extended Release 24 Hr 15 mg PO QAM atorvastatin [Lipitor] 10 mg Tablet 10 mg PO QAM metoprolol succinate [Toprol XL] 100 mg Tablet Extended Release 24 Hr 100 mg PO QAM omeprazole 40 mg Capsule,Delayed Release(Dr/Ec) 40 mg PO Q2D Rx Instructions: alternates with famotodine brimonidine-timolol [Combigan] 0.2-0.5 % Drops 1 drp OPHTHALMIC (EYE) BID Lumigan 0.01 % Drops 1 drp OPHTHALMIC (EYE) PM dorzolamide (PF) 2 % Drops 1 drp OPHTHALMIC (EYE) BID fluticasone furoate-vilanterol [Breo Ellipta] 100-25 mcg/dose Blister With Device 1 inh INHALATION QAM PRN (Reason: sob) albuterol sulfate 90 mcg/actuation Hfa Aerosol Inhaler 2 puff INHALATION 6XD PRN (Reason: Wheezing) polyethylene glycol 3350 [Miralax] 17 gram powder in packet 17 g PO DAILY PRN (Reason: constipation) Qty: 5 0RF famotidine 40 mg Tablet 40 mg PO Q2D Rx Instructions: alternates every other morning with omeprazole Held aspirin 81 mg Tablet,Delayed Release (Dr/Ec) 81 mg PO QAM Hold Instructions: Resume on 11/05/24. Restart the daily aspirin when the twice daily aspirin is completed. Discharge Orders: Discharge Order (Routine); Ordered 10/07/24 Ordered By: Remi Mata Admission Data Admit Date/Time: 10/07/24 10:08 Attending Provider: Pablo Delgado Admit Provider: Pablo Delgado Primary Care Provider: Pa Dooley Other Interventions: Discharge Summary Assessment (RN) Last Done: 10/07/24 10:20
== END 2024-10-07 11:56 | disposition home health service (06) | DRG 467 ==
LOC: 3W 12:40 → ASU 12:40
DX: I10 Essential (primary) hypertension; M87.9 Osteonecrosis, unspecified; Z79.899 Other long term (current) drug therapy; E78.5 Hyperlipidemia, unspecified; Z99.89 Dependence on other enabling machines and devices; G47.30 Sleep apnea, unspecified; T84.033A Mechanical loosening of internal left knee prosthetic joint, initial encounter; J45.909 Unspecified asthma, uncomplicated; K44.9 Diaphragmatic hernia without obstruction or gangrene; Z88.5 Allergy status to narcotic agent; I25.10 Atherosclerotic heart disease of native coronary artery without angina pectoris; Z79.82 Long term (current) use of aspirin; K21.9 Gastro-esophageal reflux disease without esophagitis